=== PATIENT | male | born 1935 | race Caucasian/White ===

== ENCOUNTER → 2019-05-10 08:22 | Outpatient (CLI) | payer OTHER, SELFPAY ==
--- NOTE | 2019-05-10 | DI.ECHO.S_ITS ---
[facility] +---------+ : : [address] : [place] : : : : [id number] : : : : Phone: [phone]---------+ Echocardiogram Report + + :Name: MICHAEL HERRMANN Study Date: 05/10/2019 Height: 70 in : :[facility] Weight: 280 lb : : Gender: Male BSA: 2.4 m2 : :: 1935 Age: 84 yrs BP: 148/86 mmHg: :Reason For Study: ISCHEMIC HEART DISEASE : : Performed By: Rhea Sheldon : :Referring: LIZZETTE LINDO : + + Interpretation Summary 1) Normal left ventricular size with low normal systolic function (EF 50-55%). 2) There is a mild dyssynchronous contraction pattern due to the paced rhythm. The inferoapex appears akinetic but this can also be due to paced rhythm. 3) The right ventricle grossly appears normal in size with probable normal systolic function. 4) No significant valvular abnormalities. 5) No prior Echo available for comparison. Procedure: A two-dimensional transthoracic echocardiogram with color flow and Doppler was performed. There is no prior echocardiogram noted for this patient. A contrast injection of Definity was performed to improve assessment of LV function. The study quality was technically difficult. The subcostal views were difficult to obtain and are suboptimal in quality. The patient has a paced rhythm. Left Ventricle: The left ventricle is normal in size. Left ventricular wall thickness is mildly increased. The ejection fraction is estimated to be 50- 55%. There is a mild dyssynchronous contraction pattern due to the paced rhythm. The inferoapex appears akinetic but this can also be due to paced rhythm. Diastolic function could not be accurately assessed due to paced rhythm. Right Ventricle: The right ventricle is not well visualized. The right ventricle grossly appears normal in size with probable normal systolic function. Atria: The left atrial size is normal. Right atrium not well visualized. There is no Doppler evidence for an interatrial shunt. Mitral Valve: The mitral valve leaflets appear mildly thickened, but open well. There is trace mitral regurgitation. Aortic Valve: The aortic valve is trileaflet. The aortic valve opens well. There is no aortic valve stenosis. No aortic regurgitation is present. Tricuspid Valve: The tricuspid valve is not well visualized, but is grossly normal. There is a trace or physiologic amount of tricuspid regurgitation. Pulmonary artery pressures cannot be estimated because of the lack of a measurable TR jet velocity. Pulmonic Valve: The pulmonic valve is not well seen, but is grossly normal. There is a trace or physiologic amount of pulmonic regurgitation. Great Vessels: The aortic root is normal size. The ascending aorta is at the upper limits of normal in size. The inferior vena cava was not well visualized. Pericardium/ Pleura Physiologic pericardial effusion. MMode/2D Measurements & Calculations LVIDd: 5.6 cm LVOT diam: 2.3 cm LVIDs: 4.2 cm Ao root diam: 3.7 cm FS: 25.5 % asc Aorta Diam: 3.6 cm IVSd: 1.0 cm LVPWd: 1.3 cm LV aguiar. diameter/BSA (cm/m^2): 2.3 LV sys. diameter/BSA (cm/m^2): 1.7 LA A2 area: 23.0 cm2 TAPSE: 2.2 cm LA A4 area: 23.8 cm2 LA length (vol): 6.1 cm LA vol: 75.7 ml LA vol index: 31.4 ml/m2 Doppler Measurements & Calculations Ao V2 max: 153.4 cm/sec LVOT Max Raymundo: 104.9 cm/sec Ao V2 mean: 100.9 cm/sec LV V1 max P.4 mmHg Ao max P.4 mmHg LV V1 VTI: 22.9 cm Ao mean P.8 mmHg GORGE(I,D): 3.1 cm2 Ao V2 VTI: 31.8 cm GORGE(V,D): 3.0 cm2 sev ratio: 0.72 GORGE indexed to BSA (cm^2/m^2): 1.3 MV E max raymundo: 81.2 cm/sec PA V2 max: 76.5 cm/sec MV A max raymundo: 106.8 cm/sec PA V2 mean: 48.9 cm/sec MV E/A: 0.76 PA mean P.1 mmHg Med Peak E' Raymundo: 4.5 cm/sec PA pr(Accel): 44.7 mmHg E/E' med: 18.1 PA Accel Time: 0.08 sec Lat Peak E' Raymundo: 6.7 cm/sec E/E' lat: 12.2 E/e' average: 15.1 SV(LVOT): 99.0 ml Reading Physician:02:08 PM
[2019-05-10 08:57] LABS: Appearance Urine UA CLEAR; Bilirubin Urine UA NEGATIVE (NEGATIVE); Color Urine UA YELLOW; Glucose Urine UA NEGATIVE (Negative); Ketones Urine UA NEGATIVE (NEGATIVE); Leukocyte Esterase Urine UA NEGATIVE (NEGATIVE); Nitrite Urine UA NEGATIVE (Negative); Occult Blood Urine UA TRACE-INTACT (Negative); Protein Urine UA 2+ (Negative); Urobilinogen Urine UA 0.2 E.U./dL (0.2); pH Urine UA 6.5 (4.5-8.0)
[2019-05-10 09:12] LABS: Alanine Aminotransferase 21 IU/L (<50); Albumin 4.5 g/dL (3.5-5.0); Albumin Globulin Ratio 1.4 (1.0-2.8); Alkaline Phosphatase 69 U/L (38-126); Aspartate Aminotransferase 26 IU/L (17-59); BUN Creatinine Ratio 22.2 (6-22); Bilirubin Total 0.7 mg/dL (0.2-1.3); Blood Urea Nitrogen 20 mg/dL (9-20); Calcium 9.7 mg/dL (8.4-10.2); Carbon Dioxide 30 mmol/L (22-32); Chloride 102 mmol/L (98-107); Estimated Glomerular Filt Rate > 60.0 mL/min (>60); Globulin 3.2 g/dL (1.7-4.1); Glucose 146 mg/dL (80-110); HEMOLYSIS < 15 (0-50); Potassium 4.6 mmol/L (3.4-5.1); Sodium 141 mmol/L (137-145); Total Protein 7.7 g/dL (6.3-8.2)
[2019-05-10 10:07] LABS: Creatinine Urine Random 117.1 mg/dL
[2019-05-10 10:12] LABS: Microalbumin Urine Random 15.7 mg/dL (0-1.6)
[2019-05-10 11:21] LABS: Bacteria Urine Few (2-10); RBC Urine 1-5/HPF (0-5/HPF); Squamous Epithelial Cell Urine 0-1 /HPF (0-5/HPF); WBC Urine 0-1/HPF (0-5/HPF)
[2019-05-10 11:22] LABS: Culture Indicated Urine Cult Not Indicated; Granular Casts Urine 0-1/LPF
== END ==
PROVIDERS: PCP Family Medicine; Referring Provider Orthopaedic Surgery; Visit Provider Orthopaedic Surgery
DX: I25.9 Chronic ischemic heart disease, unspecified (principal); I44.30 Unspecified atrioventricular block; I48.91 Unspecified atrial fibrillation; I31.3 Pericardial effusion (noninflammatory); E11.9 Type 2 diabetes mellitus without complications
CPT/HCPCS: 36415; 80053; 81001; 82043; 82570; 93005; 93306; Q9957

== ENCOUNTER → 2019-08-30 09:05 | Outpatient (ROUT) | payer MEDICARE, BC, SELFPAY ==
[2019-08-30 09:45] LABS: INR 2.2 (0.9-1.3); Prothrombin Time 25.8 SECONDS (10.1-12.7)
== END ==
PROVIDERS: PCP Family Medicine; Visit Provider Family Medicine
DX: Z79.01 Long term (current) use of anticoagulants (principal); I48.0 Paroxysmal atrial fibrillation
CPT/HCPCS: 85610

== ENCOUNTER → 2019-09-13 14:13 | Outpatient (ROUT) | payer MEDICARE, BC, SELFPAY ==
[2019-09-13 14:28] LABS: INR 2.5 (0.9-1.3); Prothrombin Time 29.2 SECONDS (10.1-12.7)
== END ==
PROVIDERS: PCP Family Medicine; Visit Provider Family Medicine
DX: Z79.01 Long term (current) use of anticoagulants (principal); I48.0 Paroxysmal atrial fibrillation
CPT/HCPCS: 85610

== ENCOUNTER → 2019-10-12 10:02 | Outpatient (CLI) | payer MEDICARE, BC, SELFPAY ==
[2019-10-12 12:22] LABS: BUN Creatinine Ratio 17.7 (6-22); Blood Urea Nitrogen 17 mg/dL (9-20); Calcium 9.6 mg/dL (8.4-10.2); Carbon Dioxide 27 mmol/L (22-32); Chloride 104 mmol/L (98-107); Estimated Glomerular Filt Rate > 60.0 mL/min (>60); Glucose 109 mg/dL (80-110); HEMOLYSIS < 15 (0-50); Potassium 4.3 mmol/L (3.4-5.1); Sodium 138 mmol/L (137-145)
== END ==
PROVIDERS: PCP Family Medicine; Referring Provider Internal Medicine Cardiovascular Disease; Visit Provider Internal Medicine Cardiovascular Disease
DX: I25.10 Atherosclerotic heart disease of native coronary artery without angina pectoris (principal); I49.5 Sick sinus syndrome
CPT/HCPCS: 36415; 80048

== ENCOUNTER → 2020-02-24 10:11 | Outpatient (CLI) | payer MEDICARE, BC, SELFPAY ==
--- NOTE | 2020-02-24 | DI.CT.S_ITS ---
PROCEDURE: CT ABDOMEN PELVIS W CON INDICATIONS: Generalized abdominal pain TECHNIQUE: After the administration of oral and intravenous contrast, 5 mm thick sections acquired from the diaphragms to the symphysis. 5 mm thick coronal and sagittal reformats were performed. For radiation dose reduction, the following was used: automated exposure control, adjustment of mA and/or kV according to patient size. COMPARISON: Outside Film, CT, CT ABDOMEN PELVIS WITH/WITHOUT CONTRAST, 09/16/2013, 8:39. FINDINGS: Image quality: Excellent. ABDOMEN: Lung bases: Lung bases are clear. Heart size is normal. Solid organs: Liver is normal in size and enhancement. There is a small right posterior segment hepatic cyst as was previously the case in 2014. Gallbladder has been previously resected . Biliary system is non-dilated. Pancreas enhances normally. Spleen is normal in size and enhancement. No adrenal nodules. Kidneys are normal in size and enhancement, without hydronephrosis. Peritoneum and bowel: Stomach, small bowel, and colon loops are normal in caliber and wall thickness. No free fluid or air. Nodes and vessels: No retroperitoneal or mesenteric adenopathy. Aorta and inferior vena cava are normal in caliber. Miscellaneous: No ventral hernias. PELVIS: Genitourinary: Bladder wall thickness is normal. The bladder now contains approximately 6 small mobile urinary tract stones layering dependently within the bladder lumen. These were previously absent. Miscellaneous: No inguinal hernias or adenopathy. Normal appendix found. Bones: No suspicious bony lesions. No vertebral body compression fractures. IMPRESSION: Source of generalized abdominal pain is not seen. Normal appendix found. No sign of diverticulitis. Incidental note is made of approximately 6 small mobile bladder calculi when with reference to the [address] no bladder or collecting system calculus was found. These would present some degree of risk for recurrent urinary tract infections. Dictated by: Alonso Hirsch M.D. on 02/24/2020 at 14:23 Approved by: Alonso Hirsch M.D. on 02/24/2020 at 14:30
== END ==
PROVIDERS: PCP Family Medicine; Referring Provider Family Medicine; Visit Provider Family Medicine
DX: R10.84 Generalized abdominal pain (principal); N21.0 Calculus in bladder
CPT/HCPCS: 74177; Q9967

== ENCOUNTER 2023-06-01 13:10 | Emergency (ER) | payer MEDICARE, BC, SELFPAY ==
[2020-09-20 14:38] VITALS: BMI 34.8
[2023-06-01] VITALS (14 sets, daily range): BP systolic 127–145; BP diastolic 60–73; PULSE 84–96; RESP 22–34; TEMP 36.6–37; O2SAT 91–97; BMI 33.0
--- NOTE | 2023-06-01 13:30 | DI.RAD.S_ITS ---
PROCEDURE: XR CHEST 1V INDICATIONS: Shortness of breath TECHNIQUE: One view of the chest was acquired. COMPARISON: [facility], CR, XR CHEST 2V, 10/15/2022, 15:10. FINDINGS: Surgical changes and devices: Pacemaker. Lungs and pleura: Mild left effusion. Minimal appearance of increased vascularity. Mediastinum: Mediastinal contours appear normal. Heart size is enlarged. Bones and chest wall: No suspicious bony lesions. Overlying soft tissues appear unremarkable. IMPRESSION: Minimal increased vascularity with cardiomegaly and mild left effusions suggestive of edema. Dictated by: Nancy Mariscal M.D. on 06/01/2023 at 14:45 Approved by: Nancy Mariscal M.D. on 06/01/2023 at 14:45
[2023-06-01 14:35] LABS: Add Manual Diff / Slide Review NO; Basophils Absolute Auto 0 /uL (0-100); Basophils Percent Auto 0.4 % (0-2); Eosinophils Absolute Auto 300 /uL (0-450); Eosinophils Percent Auto 3.6 % (2-4); Hematocrit 24.3 % (41-53); Hemoglobin 8.2 g/dL (13.5-17.5); Lymphocytes Absolute Auto 1300 /uL (1100-4500); Lymphocytes Percent Auto 13.8 % (25-40); Mean Corpuscular HGB Conc 33.9 % (30-36); Mean Corpuscular Volume 97.3 fL (80-100); Monocytes Absolute Auto 900 /uL (0-900); Monocytes Percent Auto 9.6 % (3-14); Neutrophils Absolute Auto 7000 /uL (1500-7000); Neutrophils Percent Auto 72.6 % (50-75); Platelet Count 261 X10^3/uL (150-400); Red Blood Cell Count 2.49 X10^6/uL (4.5-5.9); Red Cell Distribution Width 21.6 % (11.6-14.8); White Blood Cell Count 9.7 X10^3/uL (4.5-11.0)
[2023-06-01 14:38] LABS: INR 1.7 (0.9-1.3); Prothrombin Time 19.7 SECONDS (9.4-12.5)
[2023-06-01 14:46] LABS: Alanine Aminotransferase 13 IU/L (<50); Albumin Globulin Ratio 1.3 (1.0-2.8); Alkaline Phosphatase 82 U/L (38-126); Aspartate Aminotransferase 20 IU/L (17-59); BUN Creatinine Ratio 11.8 (6-22); Bilirubin Total 0.8 mg/dL (0.2-1.3); Blood Urea Nitrogen 15 mg/dL (9-20); Calcium 9.7 mg/dL (8.4-10.2); Carbon Dioxide 29 mmol/L (22-32); Chloride 106 mmol/L (98-107); Estimated Glomerular Filt Rate 54 mL/min (>60); Globulin 3.1 g/dL (1.7-4.1); Glucose 127 mg/dL (80-110); HEMOLYSIS < 15 (0-50); Lactate (Lactic Acid) 1.7 mmol/L (0.7-2.1); Potassium 4.2 mmol/L (3.4-5.1); Sodium 142 mmol/L (137-145); Total Protein 7.1 g/dL (6.3-8.2)
[2023-06-01 14:55] LABS: Acanthocytes 1+; Anisocytosis 2+; NT-proBNP (BNP-Adult 18+) 6230 pg/mL (<450); Ovalocytes 2+; Rouleaux 1+; Schistocytes 1+; Troponin I < 0.012 ng/mL (0.01-0.034)
--- NOTE | 2023-06-01 15:05 | ED_ITS ---
HPI - General Adult General Chief complaint: Shortness of Breath/Dyspnea Stated complaint: Exertional SOB Time Seen by Provider: 06/01/23 15:01 Source: patient and EMS Mode of arrival: EMS History of Present Illness HPI narrative: 88-year-old male with history of pacemaker, atrial fibrillation, ileus, L3 compression fracture presents with exertional shortness of breath. History clarified from triage. Daughter at bedside is also a nurse. Patient had cardiac intervention with reported catheterization, bypass, stent in [place] in March. Daughter at bedside notes that patient had possible anaphylaxis to protamine sulfate during this, with bradycardia, and that he developed a left- sided hemothorax that required chest tube though this per their report was treated. He is consistent with his medications and has been overall doing well. There has been absolutely no chest pain recently. However, in the last several days, he is developed productive cough with intermittent shortness of breath and orthopnea. No pleuritic symptoms. No clear fevers or chills. No nausea or vomiting. No asymmetric leg swelling or leg pain. He denies history of blood clots. He is consistent with his Eliquis. He has not on diuretics. He also has a local [facility] and primary care physician. No back or flank or abdominal pain, focal numbness or weakness, lightheadedness or passing out, palpitations, bleeding, red or black in stool, or any other new concerns. Related Data Home Medications Medication Instructions Recorded Confirmed VITAMIN B COMPLEX ([id number]) 1 cap PO DAILY ##0 04/04/11 09/17/22 metformin 500 mg tablet,extended 500 mg PO BID ##0 04/04/11 09/17/22 release 24 hr (Glucophage XR) omeprazole 40 mg capsule,delayed 40 mg PO QDAY ##0 04/04/11 09/17/22 release finasteride 5 mg tablet 5 mg PO DAILY 01/14/21 09/17/22 amlodipine 5 mg tablet 5 mg PO DAILY 02/27/22 09/17/22 azelastine 137 mcg (0.1 %) nasal 1 spray intranasal DAILY 02/27/22 09/17/22 spray aerosol carvedilol 25 mg tablet 25 mg PO DAILY 02/27/22 09/17/22 isosorbide mononitrate 30 mg 30 mg PO DAILY 02/27/22 09/17/22 tablet,extended release 24 hr calcium citrate 250 mg PO DAILY 09/17/22 09/17/22 saffron extract 176.5 mg tablet 176.5 mg PO DAILY 09/17/22 09/17/22 Previous Rx's Medication Instructions Recorded acetaminophen 325 mg tablet 650 mg (2 x 325 mg) PO Q6HR #1,000 09/29/20 tabs apixaban 5 mg tablet (Eliquis) 5 mg PO BID #60 tabs 09/29/20 atorvastatin 40 mg tablet 40 mg PO BEDTIME #40 tabs 09/29/20 losartan 100 mg tablet 100 mg PO DAILY #10 tabs 09/29/20 cyclobenzaprine 10 mg tablet 10 mg PO TID pain #90 tabs 02/17/22 tramadol 50 mg tablet 50 mg PO BID PRN pain #42 tabs 01/27/23 doxycycline hyclate 100 mg capsule 100 mg PO BID 7 days #14 caps 06/01/23 furosemide 40 mg tablet (Lasix) 40 mg PO DAILY #7 tabs 06/01/23 Allergies Allergy/AdvReac Type Severity Reaction Status Date / Time shellfish derived Allergy Intermediate Hives Verified 09/17/22 08:42 lisinopril Allergy Unknown Verified 09/17/22 08:42 moricizine [From Ethmozine] Allergy Unknown Verified 09/17/22 08:42 Penicillins AdvReac Unknown Anxiety Verified 09/17/22 08:42 Review of Systems Review of Systems Narrative: Constitutional: no fever, no chills Eyes: no visual disturbance, no discharge Ears, Nose, Mouth, Throat: no rhinorrhea, no sore throat Cardiovascular: no chest pain, no palpitations Respiratory: + cough, shortness of breath Gastrointestinal: no abdominal pain, no vomiting, no diarrhea Genitourinary: no dysuria, no hematuria Musculoskeletal: no back pain, no neck stiffness Skin: no rash, no wound Neurological: no focal weakness, no focal numbness Patient History Medical History Atrial fibrillation Bladder stones Compression fracture of L3 lumbar vertebra Diabetes Enlarged prostate with urinary retention Facet arthropathy, lumbar Herniated nucleus pulposus, lumbar Hypertension Impingement syndrome of left shoulder Lumbar radiculopathy Lumbar stress fracture Morbid obesity Pacemaker Family History Mother Cancer Social History household members: spouse Smoking Status: Never smoker Smoking Status: Never smoker alcohol intake frequency: holidays/special occasions only Substance Use Type: does not use Exam Narrative Exam Narrative: Const: no acute distress, non toxic appearing; calm, conversant, pleasant; occasional cough Eyes: PERRLA, EOMI ENT: mucous membranes moist Neck: supple, non-tender Resp: no respiratory distress, good aeration but with bilateral lower lung crackles, worse on left side Card: regular rate and rhythm, no murmurs Abd: non tender diffusely, no rigidity or rebound or guarding Back: no T or L spine tenderness, no CVA tenderness bilaterally Extrem: no deformities, no swelling bilateral lower extremities, 2+ distal pulses all extremities Neuro: ANOx4, legal adviser grossly intact, grossly intact sensation and strength all extremities Skin: no rash, warm and dry Initial Vital Signs Initial Vital Signs: Vital Signs Pulse Rate 92 H 06/01/23 13:15 Respiratory Rate 26 H 06/01/23 13:15 Pulse Oximetry 91 06/01/23 13:15 Course Course Course Narrative: This presentation is most suggestive of pulmonary edema, CHF, viral syndrome, pneumonia, though I have considered a broad differential including but not limited to pulmonary embolism, ACS, myocarditis, pneumothorax, COPD exacerbation, symptomatic anemia, metabolic acidosis, among others. I am obtaining broad workup with EKG, CBC, CMP, troponin, D-dimer, BNP, chest x-ray, viral swab, urine and will closely reassess. Per chart review, he had pacemaker placed in April 2022. Patient notes he is receiving iron for anemia. EKG shows paced rhythm without clear acute ischemia, with interval prolongation in the setting of paced rhythm. We are able to find prior EKG from August 2020 that has overall similar morphology. CBC with no leukocytosis, with anemia down roughly 2.5 points from August 2022 (pt states he is receiving iron for this), no thrombocytopenia. Chemistry with creatinine increased from 1 year ago, though no more recent for comparison, with no BUN elevation, with no LFT elevation, no immediately concerning electrolyte derangements. INR elevated to 1.7. Lactate reassuring. BNP very elevated. Troponin reassuring. Urine with some blood though in setting of contamination, no clear infection particularly with no symptoms. Patient notified of this finding for follow up. Radiology review of CXR below, which I agree with on my independent review: FINDINGS: Surgical changes and devices: Pacemaker. Lungs and pleura: Mild left effusion. Minimal appearance of increased vascularity. Mediastinum: Mediastinal contours appear normal. Heart size is enlarged. Bones and chest wall: No suspicious bony lesions. Overlying soft tissues appear unremarkable. IMPRESSION: Minimal increased vascularity with cardiomegaly and mild left effusions suggestive of edema. Dictated by: Nancy Mariscal M.D. on 06/01/2023 at 14:45 -- I am giving Lasix 40 mg IV. D-dimer is elevated, and I am pursuing CTA PE study. Radiology review of CTA below, which I agree with on my independent review: FINDINGS: Image quality: Suboptimal evaluation of the subsegmental pulmonary arteries of the lower lobe secondary to contrast bolus timing. Pulmonary arteries: Pulmonary arteries are normal in size, and demonstrate no definite central intraluminal filling defects to suggest central pulmonary embolism. Lower Neck: No enlarged lymph nodes. Thyroid: No thyroid nodules which require sonographic follow up, per consensus guidelines. Axillae: No enlarged lymph nodes. Chest Wall: Unremarkable. Bones: Unremarkable. Lungs and Pleura: No pneumothorax. There is a small left pleural effusion. There is moderate bibasilar predominant reticulonodular and ground-glass pulmonary opacity. Heart: Heart size is enlarged. Calcification of the coronary vasculature. No pericardial effusion. Thoracic Vessels: No aortic aneurysm. Mediastinum and Akiko: No enlarged lymph nodes. Esophagus: No wall thickening. No hiatal hernia. Upper Abdomen: Visualized upper abdomen solid organs and bowel loops appear normal. IMPRESSION: 1. No definite central pulmonary embolus. Subsegmental lower lobe pulmonary emboli cannot be excluded. 2. Cardiomegaly. Coronary artery disease. 3. Bibasilar predominant edema versus pneumonia. Small left pleural effusion. Dictated by: Ana Cristina Crabtree M.D. on 06/01/2023 at 16:55 CT is somewhat suboptimal, however he is overall reassuring in the clinical context. Findings appear sufficient to explain patient's shortness of breath. This appears most consistent with edema with potential for pneumonia. This appears less consistent with hemothorax, and certainly is not consistent with a large hemothorax that would merit repeat chest tube currently. I did explain the suboptimal nature of the study to him and offer him repeat CT, discussing that it is possible a small pulmonary embolism could have been missed. However, fully understanding the risks of not pursuing this, he chose not to pursue this study. He is anticoagulated with no evidence of cardiac injury here, with no large PE on imaging, and I think this is reasonable. He is also improving here with Lasix, and I am adding antibiotics in case of concurrent pneumonia. He is urinating well here and understands importance of repeat labs within a few days, with family with excellent health care literacy understanding this as well. I recommended discussion of outpatient echo with them. Volume overload and the potential for pneumonia seem sufficient to explain his symptoms, particularly in the setting of no chest pain or pleuritic symptoms. Patient understands importance of close follow up and appears stable, not in respiratory distress, not requiring oxygen, well-perfused, afebrile. Copy of imaging given for follow up. Prescribing doxycycline, Lasix. Repeat exam and vital signs reassuring. Note measurement of respiratory rate by machine is not accurate; I reassessed the patient multiple times in his respiratory rate is in the mid teens. Questions answered. Plan reviewed. Patient discharged in stable condition. Orders Ordered: ED Orders 06/01/23 13:30 XR chest 1V Stat EKG-12 Lead Stat Measure peak expiratory flow ONCE RT Consult Eval and Treat NOW 06/01/23 13:40 Complete Blood Count AUTO DIFF Stat Comprehensive Metabolic Panel Stat D Dimer Stat Lactate (Lactic Acid) Stat NT-proBNP (BNP-Adult 18+) Stat Prothrombin Time INR Stat Troponin I Stat 06/01/23 15:30 Urinalysis and Microscopic Stat Urine Culture Stat 06/01/23 15:42 CT angio chest PE protocol Stat 06/01/23 17:37 Blood Culture Stat Discontinued Medications Doxycycline Hyclate (Doxycycline Hyclate 100 Mg Tablet) 100 mg PO NOW ONE Stop: 06/01/23 17:35 Last Admin: 06/01/23 17:59 Dose: 100 mg Documented By: FLORES Furosemide (Furosemide 40 Mg/4 Ml Vial) 40 mg IV NOW ONE Stop: 06/01/23 15:43 Last Admin: 06/01/23 15:56 Dose: 40 mg Documented By: FLORES Vital Signs Vital signs: Vital Signs - 8 hr 06/01/23 13:15 06/01/23 13:16 06/01/23 13:16 Temperature Pulse Rate 92 H 91 H Respiratory Rate 26 H 32 H Blood Pressure 145/64 H Pulse Oximetry 91 96 Oxygen Delivery Method 06/01/23 13:26 06/01/23 13:30 06/01/23 14:00 Temperature 97.9 F Pulse Rate 90 91 H Respiratory Rate 22 31 H Blood Pressure 145/64 H 141/67 H Pulse Oximetry 96 97 Oxygen Delivery Method Room Air Room Air 06/01/23 14:00 06/01/23 14:30 06/01/23 14:30 Temperature Pulse Rate 85 84 Respiratory Rate 22 26 H Blood Pressure 127/60 Pulse Oximetry 96 95 Oxygen Delivery Method 06/01/23 15:00 06/01/23 15:00 06/01/23 15:33 Temperature Pulse Rate 85 96 H Respiratory Rate 30 H 34 H Blood Pressure 132/68 Pulse Oximetry 94 96 Oxygen Delivery Method 06/01/23 15:33 06/01/23 16:12 06/01/23 16:30 Temperature 98.6 F Pulse Rate 92 H 86 Respiratory Rate 24 Blood Pressure 129/73 Pulse Oximetry 96 Oxygen Delivery Method 06/01/23 17:00 06/01/23 17:30 06/01/23 17:41 Temperature Pulse Rate 87 86 85 Respiratory Rate 30 H 24 24 Blood Pressure Pulse Oximetry 95 95 95 Oxygen Delivery Method 06/01/23 17:41 06/01/23 18:00 Temperature Pulse Rate 87 Respiratory Rate 24 Blood Pressure 136/65 Pulse Oximetry 97 Oxygen Delivery Method Medical Decision Making Lab Data 06/01/23 13:40 06/01/23 13:40 Labs: Lab Results 06/01/23 06/01/23 Range/Units 13:40 15:30 WBC 9.7 (4.5-11.0) X10^3/uL RBC 2.49 L (4.5-5.9) X10^6/uL Hgb 8.2 L (13.5-17.5) g/dL Hct 24.3 L (41-53) % MCV 97.3 (80-100) fL MCH 33.0 (26-34) PG MCHC 33.9 (30-36) % RDW 21.6 H (11.6-14.8) % Plt Count 261 (150-400) X10^3/uL Neut % (Auto) 72.6 (50-75) % Lymph % (Auto) 13.8 L (25-40) % [place] % (Auto) 9.6 (3-14) % Eos % (Auto) 3.6 (2-4) % Baso % (Auto) 0.4 (0-2) % Neut # (Auto) 7000 (3291-6850) /uL Lymph # (Auto) 1300 (2588-2423) /uL [place] # (Auto) 900 (0-900) /uL Eos # (Auto) 300 (0-450) /uL Baso # (Auto) 0 (0-100) /uL RBC Morphology See below Anisocytosis 2+ H Ovalocytes 2+ H Acanthocytes (Spur) 1+ Rouleaux 1+ H Schistocytes 1+ H PT 19.7 H (9.4-12.5) SECONDS INR 1.7 H (0.9-1.3) D-Dimer 1310 H (<500) ng/ml Sodium 142 (137-145) mmol/L Potassium 4.2 (3.4-5.1) mmol/L Chloride 106 (98-107) mmol/L Carbon Dioxide 29 (22-32) mmol/L BUN 15 (9-20) mg/dL Creatinine 1.27 H (0.66-1.25) mg/dL Estimated GFR 54 L (>60) mL/min BUN/Creatinine Ratio 11.8 (6-22) Glucose 127 H (80-110) mg/dL Lactate 1.7 (0.7-2.1) mmol/L Calcium 9.7 (8.4-10.2) mg/dL Total Bilirubin 0.8 (0.2-1.3) mg/dL AST 20 (17-59) IU/L ALT 13 (<50) IU/L Alkaline Phosphatase 82 (38-126) U/L Troponin I < 0.012 (0.01-0.034) ng/mL NT-Pro-B Natriuret Pep 6230 H (<450) pg/mL Total Protein 7.1 (6.3-8.2) g/dL Albumin 4.0 (3.5-5.0) g/dL Globulin 3.1 (1.7-4.1) g/dL Albumin/Globulin Ratio 1.3 (1.0-2.8) Urine Color Yellow Urine Appearance Clear Urine pH 6.0 (4.5-8.0) Ur Specific [place] 1.025 (1.000-1.035) Urine Protein 2+ H (Negative) Urine Glucose (UA) Negative (Negative) g/dL Urine Ketones Negative (NEGATIVE) Urine Occult Blood Trace-intact (Negative) Urine Nitrate Negative (Negative) Urine Bilirubin Negative (NEGATIVE) Urine Urobilinogen 4.0 H (0.2) E.U./dL Ur Leukocyte Esterase Negative (NEGATIVE) Urine RBC 5-10/hpf H (0-5/HPF) Urine WBC 0-1/hpf (0-5/HPF) Ur Squamous Epith Cells 10-30 /hpf H D (0-5/HPF) Urine Bacteria Occasional (0-1) (None) Ur Culture Indicated? Specimen cultured Vol Urine Centrifuged 10ml (spun) Discharge Plan Departure Patient Disposition: Home Clinical Impression: Dyspnea Instructions: DI for Shortness of Breath Activity Restrictions/Additional Instructions: It was a pleasure taking care of you today. It is important to fully read and understand the below. Please ask us if you have any questions. We think the most likely cause of your symptoms is extra fluid in your lungs, though pneumonia could be contributing. As discussed, the CT was not perfect for ruling out blood clots, but this does seem less likely at this time, and you prefer not to obtain repeat imaging. It is very important you are reassessed by a doctor within 2-3 days. I am prescribing both Lasix to help get fluid out of your lungs and antibiotics. I am sending blood cultures that your doctor should follow up on within a few days. If you feel worse, please immediately return. There is small blood and protein in your urine for follow up. You also are more anemic than you used to be 1 year ago and this also needs follow up. You told me you are receiving iron for this. No tests or assessments are perfect, and your condition could chemical cell changer time. If your symptoms change or worsen, it is very important you immediately seek medical care. If you have any new or worsening pain, lightheadedness or passing out, lack of improvement within 48 hours, shortness of breath, fever, vomiting, confusion, numbness, weakness, or anything else that concerns you, please immediately seek medical care. If you have been prescribed any medications: please read the drug package inserts on how to properly use the medication and any potential side effects. If you had labs (blood tests) or imaging (CT scan or x-rays) done during your visit: please follow up on the results of these with your primary care doctor, as discussed. In addition, please know the results we received today may be preliminary. Our usual practice is to follow up on tests within a few days of a patient's discharge from the Emergency Department and notify you of any changes. These may lead to changes to your treatment plan. However, the best way to obtain and interpret these test results is through your Primary Care Provider. If you need to update your contact information, please stop by the front office java developer and alert the Registration personnel before you leave the Emergency Department. Thank you for the opportunity to participate in your healthcare. We are always here and happy to see you in the future. --- PLEASE TAKE THE ATTACHED IMAGING TO YOUR DOCTORS: FINDINGS: Image quality: Suboptimal evaluation of the subsegmental pulmonary arteries of the lower lobe secondary to contrast bolus timing. Pulmonary arteries: Pulmonary arteries are normal in size, and demonstrate no definite central intraluminal filling defects to suggest central pulmonary embolism. Lower Neck: No enlarged lymph nodes. Thyroid: No thyroid nodules which require sonographic follow up, per consensus guidelines. Axillae: No enlarged lymph nodes. Chest Wall: Unremarkable. Bones: Unremarkable. Lungs and Pleura: No pneumothorax. There is a small left pleural effusion. There is moderate bibasilar predominant reticulonodular and ground-glass pulmonary opacity. Heart: Heart size is enlarged. Calcification of the coronary vasculature. No pericardial effusion. Thoracic Vessels: No aortic aneurysm. Mediastinum and Akiko: No enlarged lymph nodes. Esophagus: No wall thickening. No hiatal hernia. Upper Abdomen: Visualized upper abdomen solid organs and bowel loops appear normal. IMPRESSION: 1. No definite central pulmonary embolus. Subsegmental lower lobe pulmonary emboli cannot be excluded. 2. Cardiomegaly. Coronary artery disease. 3. Bibasilar predominant edema versus pneumonia. Small left pleural effusion. Dictated by: Ana Cristina Crabtree M.D. on 06/01/2023 at 16:55 Prescriptions: New furosemide [Lasix] 40 mg tablet 40 mg PO DAILY Qty: 7 0RF doxycycline hyclate 100 mg capsule 100 mg PO BID 7 Days Qty: 14 0RF No Action omeprazole 40 MG capsule,delayed release(DR/EC) 40 mg PO QDAY Qty: 0 metformin [Glucophage XR] 500 MG tablet extended release 24 hr 500 mg PO BID Qty: 0 VITAMIN B COMPLEX ([id number]) 1,000 mcg bottle 1 cap PO DAILY Qty: 0 cyclobenzaprine 10 mg tablet 10 mg PO TID Qty: 90 0RF Rx Instructions: can be sedating tramadol 50 mg tablet 50 mg PO BID PRN (Reason: pain) Qty: 42 1RF acetaminophen 325 mg Tablet 650 mg PO Q6HR Qty: 1000 0RF Eliquis 5 mg Tablet 5 mg PO BID Qty: 60 0RF atorvastatin 40 mg tablet 40 mg PO BEDTIME Qty: 40 0RF losartan 100 mg tablet 100 mg PO DAILY Qty: 10 0RF amlodipine 5 mg tablet 5 mg PO DAILY azelastine 137 mcg (0.1 %) aerosol,spray 1 spray intranasal DAILY carvedilol 25 mg tablet 25 mg PO DAILY isosorbide mononitrate 30 mg tablet extended release 24 hr 30 mg PO DAILY finasteride 5 mg tablet 5 mg PO DAILY calcium citrate 250 mg calcium tablet 250 mg PO DAILY saffron extract 176.5 mg tablet 176.5 mg PO DAILY Referrals: Freya Gutierrez MD [Primary Care Provider] - Stand Alone Forms: Patient Portal/API
[2023-06-01 15:35] LABS: D Dimer 1310 ng/ml (<500)
--- NOTE | 2023-06-01 15:42 | DI.CT.S_ITS ---
PROCEDURE: CT ANGIO CHEST PE PROTOCOL INDICATIONS: SOB, elevated d-dimer TECHNIQUE: After the administration of intravenous contrast, 2 mm thick sections acquired from the pulmonary apices to the posterior costophrenic angles. 3-dimensional maximum intensity projection (MIP) coronal and sagittal reformats were then acquired through the thorax. For radiation dose reduction, the following was used: automated exposure control, adjustment of mA and/or kV according to patient size. COMPARISON: None. FINDINGS: Image quality: Suboptimal evaluation of the subsegmental pulmonary arteries of the lower lobe secondary to contrast bolus timing. Pulmonary arteries: Pulmonary arteries are normal in size, and demonstrate no definite central intraluminal filling defects to suggest central pulmonary embolism. Lower Neck: No enlarged lymph nodes. Thyroid: No thyroid nodules which require sonographic follow up, per consensus guidelines. Axillae: No enlarged lymph nodes. Chest Wall: Unremarkable. Bones: Unremarkable. Lungs and Pleura: No pneumothorax. There is a small left pleural effusion. There is moderate bibasilar predominant reticulonodular and ground-glass pulmonary opacity. Heart: Heart size is enlarged. Calcification of the coronary vasculature. No pericardial effusion. Thoracic Vessels: No aortic aneurysm. Mediastinum and Akiko: No enlarged lymph nodes. Esophagus: No wall thickening. No hiatal hernia. Upper Abdomen: Visualized upper abdomen solid organs and bowel loops appear normal. IMPRESSION: 1. No definite central pulmonary embolus. Subsegmental lower lobe pulmonary emboli cannot be excluded. 2. Cardiomegaly. Coronary artery disease. 3. Bibasilar predominant edema versus pneumonia. Small left pleural effusion. Dictated by: Ana Cristina Crabtree M.D. on 06/01/2023 at 16:55 Approved by: Ana Cristina Crabtree M.D. on 06/01/2023 at 17:00
[2023-06-01 15:49] LABS: Appearance Urine UA CLEAR; Bilirubin Urine UA NEGATIVE (NEGATIVE); Color Urine UA YELLOW; Glucose Urine UA NEGATIVE (Negative); Ketones Urine UA NEGATIVE (NEGATIVE); Leukocyte Esterase Urine UA NEGATIVE (NEGATIVE); Nitrite Urine UA NEGATIVE (Negative); Occult Blood Urine UA TRACE-INTACT (Negative); Protein Urine UA 2+ (Negative); Specific Gravity Urine UA 1.025 (1.000-1.035)
[2023-06-01] MEDS: FUROSEMIDE 40 MG/4 ML VIAL IV (15:56)
[2023-06-01 15:57] LABS: Bacteria Urine Occasional (0-1); Culture Indicated Urine Specimen Cultured; RBC Urine 5-10/HPF (0-5/HPF); Squamous Epithelial Cell Urine 10-30 /HPF (0-5/HPF); Urine Volume 10mL (spun); WBC Urine 0-1/HPF (0-5/HPF)
[2023-06-01] MEDS: DOXYCYCLINE HYCLATE 100 MG TABLET PO (17:59)
== END 2023-06-01 18:24 | disposition home or self-care (01) ==
PROVIDERS: Emergency Provider Emergency Medicine; PCP Family Medicine
DX: R06.02 Shortness of breath (principal); R06.00 Dyspnea, unspecified
CPT/HCPCS: 36415; 71045; 71275; 80053; 81001; 83605; 83880; 84484; 85025; 85379; 85610; 87040; 87077; 87086; 87186; 93005; 93010; 96374; 99284; J1940; Q9967

== ENCOUNTER 2023-06-14 14:46 | Inpatient (IN) | payer MEDICARE, BC, SELFPAY ==
[2020-09-20 14:38] VITALS: BMI 34.8
[2023-06-14] VITALS (24 sets, daily range): BP systolic 96–145; BP diastolic 37–87; PULSE 65–93; RESP 16–35; TEMP 36.3–37.1; O2SAT 96–100; BMI 32.7
--- NOTE | 2023-06-14 14:52 | DI.RAD.S_ITS ---
PROCEDURE: XR CHEST 1V INDICATIONS: DYSPNEA ON EXERTION TECHNIQUE: One view of the chest was acquired. COMPARISON: [facility], CR, XR CHEST 1V, 06/01/2023, 13:43. FINDINGS: Surgical changes and devices: Pacemaker appear Lungs and pleura: Lungs are clear. No pleural effusions or pneumothorax. Mediastinum: Mediastinal contours appear normal. Heart size is enlarged. Bones and chest wall: No suspicious bony lesions. Overlying soft tissues appear unremarkable. IMPRESSION: No acute cardiopulmonary abnormality is seen. Dictated by: Nancy Mariscal M.D. on 06/14/2023 at 15:20 Approved by: Nancy Mariscal M.D. on 06/14/2023 at 15:20
--- NOTE | 2023-06-14 14:53 | ED_ITS ---
HPI - SOB/Dyspnea General Chief Complaint: Shortness of Breath/Dyspnea Stated Complaint: SOB on exertion Time Seen by Provider: 06/14/23 14:49 History of Present Illness HPI Narrative: 88-year-old male with history of atrial fibrillation on Eliquis, coronary artery disease status post CABG, stent in [place] in March presents by EMS from home for shortness of breath on exertion. Patient is seen here on 06/01/2023 for same complaint. At that time workup was significant for bibasilar edema, small left pleural effusion, hemoglobin 8.2. Patient was given Lasix and discharged home. Patient states he has been fairly asymptomatic until today. He went to get up to use the restroom and felt very short of breath, causing him to have to take a break and use the urinal instead of going all the way to the restroom. He rested for a little while, but when he went to get up again he felt short of breath again and decided to call 911. Patient denies bleeding, melena, hematochezia. He states that he had to have several blood transfusions during his cardiac surgical stay, but otherwise he has not had a blood transfusion. Related Data Home Medications Medication Instructions Recorded Confirmed VITAMIN B COMPLEX ([id number]) 1 cap PO DAILY ##0 04/04/11 06/12/23 omeprazole 40 mg capsule,delayed 40 mg PO QDAY ##0 04/04/11 06/12/23 release finasteride 5 mg tablet 5 mg PO DAILY 01/14/21 06/12/23 azelastine 137 mcg (0.1 %) nasal 1 spray intranasal DAILY 02/27/22 06/12/23 spray aerosol carvedilol 25 mg tablet 25 mg PO DAILY 02/27/22 06/12/23 calcium citrate 250 mg PO DAILY 09/17/22 06/12/23 saffron extract 176.5 mg tablet 176.5 mg PO DAILY 09/17/22 06/12/23 ferrous sulfate 325 mg (65 mg 325 mg PO TID 06/12/23 06/12/23 iron) tablet tamsulosin 0.4 mg capsule 0.4 mg PO BEDTIME 06/12/23 06/12/23 vitamins A,C,Z-wsch-opnedb 4,296 1 cap PO BID 06/12/23 06/12/23 mcg-226 mg-90 mg capsule (ICaps AREDS) Previous Rx's Medication Instructions Recorded acetaminophen 325 mg tablet 650 mg (2 x 325 mg) PO Q6HR #1,000 09/29/20 tabs apixaban 5 mg tablet (Eliquis) 5 mg PO BID #60 tabs 09/29/20 atorvastatin 40 mg tablet 40 mg PO BEDTIME #40 tabs 09/29/20 losartan 100 mg tablet 100 mg PO DAILY #10 tabs 09/29/20 cyclobenzaprine 10 mg tablet 10 mg PO TID pain #90 tabs 02/17/22 tramadol 50 mg tablet 50 mg PO BID PRN pain #42 tabs 01/27/23 furosemide 40 mg tablet (Lasix) 40 mg PO DAILY #7 tabs 06/01/23 Allergies Allergy/AdvReac Type Severity Reaction Status Date / Time shellfish derived Allergy Intermediate Hives Verified 06/12/23 11:27 lisinopril Allergy Unknown Verified 06/12/23 11:27 moricizine [From Ethmozine] Allergy Unknown Verified 06/12/23 11:27 Penicillins AdvReac Unknown Anxiety Verified 06/12/23 11:27 Review of Systems Review of Systems Narrative: Negative except as noted above Patient History Medical History Facet arthropathy, lumbar Impingement syndrome of left shoulder Herniated nucleus pulposus, lumbar Compression fracture of L3 lumbar vertebra Lumbar stress fracture Lumbar radiculopathy Morbid obesity Enlarged prostate with urinary retention Hypertension Atrial fibrillation Pacemaker Diabetes Bladder stones Family History Mother Cancer Social History household members: spouse Smoking Status: Former smoker Smoking Status: Former smoker alcohol intake frequency: holidays/special occasions only Substance Use Type: does not use Exam Initial Vital Signs Initial Vital Signs: Vital Signs Pulse Rate 87 06/14/23 14:51 Pulse Oximetry 100 06/14/23 14:51 Oxygen Delivery Method Room Air 06/14/23 14:51 Const: Awake, alert, no acute distress, nontoxic appearing Cardiac: regular rate, regular rhythm RESP: unlabored, clear bilaterally, no wheezing GI: Soft, nontender, nondistended, no rebound, no guarding Rectal: Quality Control Coordinator present, no hemorrhoids, no gross blood, soft brown stool in rectal vault MSK: Atraumatic, full range of motion, pulses equal Skin: Warm, Dry, intact, no rashes Neuro: AO x3, CN II-XII grossly intact, moves all extremities Course Orders Ordered: ED Orders 06/14/23 14:52 Chest [XR chest 1V] Stat 06/14/23 15:00 EKG-12 Lead Stat 06/14/23 15:15 BNP [NT-proBNP (BNP-Adult 18+)] Stat CBC Auto Diff [Complete Blood Count AUTO DIFF] Stat CMP [Comprehensive Metabolic Panel] Stat PT [Prothrombin Time INR] Stat 06/14/23 15:39 Type and Screen Stat transfuse [Packed Cells] Stat 06/14/23 16:35 Trop I [Troponin I] Stat Acetaminophen (Acetaminophen 325 Mg Tablet) 650 mg PO Q6H PRN PRN Reason: Fever/Mild Pain (1-3) Hydrocodone Bitart/Acetaminophen (Hydrocodone/Acet 5/325 Tablet) 1 tab PO Q4H PRN PRN Reason: Pain, Moderate (4-6) Calcium Carbonate (Calcium Carbonate 500 Mg Tab) 1,000 mg PO Q4HR PRN PRN Reason: Dyspepsia Docusate Sodium (Docusate 100 Mg Capsule) 100 mg PO BID [facility] Naloxone HCl (Naloxone 0.4 Mg/Ml Vial) 0.2 mg IV Q2MIN PRN PRN Reason: Opiate Reversal Ondansetron HCl (Ondansetron 4 Mg/2 Ml Inj) 4 mg IV Q8HR PRN PRN Reason: Nausea And Vomiting Pantoprazole Sodium (Pantoprazole Dr 20 Mg Tablet) 40 mg PO 0600 [facility] Vital Signs Vital signs: Vital Signs - 8 hr 06/14/23 14:51 06/14/23 14:52 06/14/23 14:52 Temperature Pulse Rate 87 89 Respiratory Rate Blood Pressure 130/64 Pulse Oximetry 100 100 Oxygen Delivery Method Room Air 06/14/23 15:00 06/14/23 15:00 06/14/23 15:00 Temperature 98.6 F Pulse Rate 83 85 Respiratory Rate 22 30 H Blood Pressure 142/78 H 142/78 H Pulse Oximetry 98 99 Oxygen Delivery Method Room Air 06/14/23 15:30 06/14/23 15:31 06/14/23 15:31 Temperature Pulse Rate 83 83 Respiratory Rate 26 H 22 Blood Pressure 145/63 H Pulse Oximetry 96 98 Oxygen Delivery Method 06/14/23 16:00 06/14/23 16:01 06/14/23 16:01 Temperature Pulse Rate 81 81 Respiratory Rate 22 26 H Blood Pressure 128/87 Pulse Oximetry 98 96 Oxygen Delivery Method Room Air MDM - SOB/Dyspnea Lab Data 06/14/23 15:15 06/14/23 15:15 Labs: Lab Results 06/14/23 06/14/23 Range/Units 15:15 15:39 WBC 10.7 (4.5-11.0) X10^3/uL RBC 1.75 L (4.5-5.9) X10^6/uL Hgb 5.7 L* (13.5-17.5) g/dL Hct 17.1 L* (41-53) % MCV 97.6 (80-100) fL MCH 32.3 (26-34) PG MCHC 33.1 (30-36) % RDW 22.8 H (11.6-14.8) % Plt Count 258 (150-400) X10^3/uL Neut % (Auto) Not Reportable Lymph % (Auto) Not Reportable [place] % (Auto) Not Reportable Eos % (Auto) Not Reportable Baso % (Auto) Not Reportable Lymph # (Auto) Not Reportable [place] # (Auto) Not Reportable Baso # (Auto) Not Reportable Total Counted 100 Seg Neutrophils % 68.0 (38-70) % Band Neutrophils % 1.0 L (3-7) % Lymphocytes % (Manual) 6.0 L (25-45) % Atypical Lymphs % 6.0 H ( - 0) % Monocytes % (Manual) 14.0 H (2-11) % Eosinophils % (Manual) 4.0 (2-4) % Basophils % (Manual) 1.0 (0-1) % Neutrophils # (Manual) 7383 H (2850-3152) /uL RBC Morphology See below Polychromasia 1+ H Hypochromasia 1+ H Anisocytosis 1+ H Ovalocytes 2+ H Rouleaux 1+ H PT 21.3 H (9.4-12.5) SECONDS INR 1.8 H (0.9-1.3) Sodium 139 (137-145) mmol/L Potassium 4.1 (3.4-5.1) mmol/L Chloride 104 (98-107) mmol/L Carbon Dioxide 30 (22-32) mmol/L BUN 34 H (9-20) mg/dL Creatinine 1.27 H (0.66-1.25) mg/dL Estimated GFR 54 L (>60) mL/min BUN/Creatinine Ratio 26.8 H (6-22) Glucose 114 H (80-110) mg/dL Calcium 9.2 (8.4-10.2) mg/dL Total Bilirubin 0.4 (0.2-1.3) mg/dL AST 24 (17-59) IU/L ALT 15 (<50) IU/L Alkaline Phosphatase 73 (38-126) U/L NT-Pro-B Natriuret Pep 3550 H (<450) pg/mL Total Protein 6.7 (6.3-8.2) g/dL Albumin 3.7 (3.5-5.0) g/dL Globulin 3.0 (1.7-4.1) g/dL Albumin/Globulin Ratio 1.2 (1.0-2.8) Blood Type O Negative Antibody Screen Negative Crossmatch See Detail MDM Narrative Medical decision making narrative: Progressive dyspnea on exertion. On exam patient is saturating well on room air, conversational without any difficulty. Lungs are clear to auscultation bilaterally. Laboratory work significant for hemoglobin 5.7, hematocrit 17.1. When patient was here 13 days ago his hemoglobin was 8.2 and his hematocrit 24.3. Patient denies melena, hematochezia, other complaints. Rectal exam shows soft brown stool, no obvious blood. Type and screen sent to lab, 2 units of packed red blood cells ordered for transfusion. Other laboratory work is significant for creatinine 1.27 and GFR 54, unchanged from recent visit on 06/01/2023. Discussed all lab and imaging findings with patient and his at bedside, recommended admission for transfusion and further investigation of his new anemia. Critical Care Time Critical Care Time Critical Care Time: Yes Total Critical Care Time: 23 Attestation: Anemia requiring transfusion, dyspnea Discharge Plan Departure Patient Disposition: Admitted As Inpatient Clinical Impression: Anemia requiring transfusions, Acute dyspnea Admit Date/Time: 06/14/23 16:18 Admit Provider: Freya Gutierrez
[2023-06-14 15:27] LABS: Mean Corpuscular HGB Conc 33.1 % (30-36); Mean Corpuscular Hemoglobin 32.3 PG (26-34); Mean Corpuscular Volume 97.6 fL (80-100); Platelet Count 258 X10^3/uL (150-400); Red Blood Cell Count 1.75 X10^6/uL (4.5-5.9); Red Cell Distribution Width 22.8 % (11.6-14.8); White Blood Cell Count 10.7 X10^3/uL (4.5-11.0)
[2023-06-14 15:29] LABS: Add Manual Diff / Slide Review YES; Hematocrit 17.1 % (41-53); Hemoglobin 5.7 g/dL (13.5-17.5); INR 1.8 (0.9-1.3); Prothrombin Time 21.3 SECONDS (9.4-12.5)
[2023-06-14 15:35] LABS: Alanine Aminotransferase 15 IU/L (<50); Albumin 3.7 g/dL (3.5-5.0); Albumin Globulin Ratio 1.2 (1.0-2.8); Alkaline Phosphatase 73 U/L (38-126); Aspartate Aminotransferase 24 IU/L (17-59); BUN Creatinine Ratio 26.8 (6-22); Bilirubin Total 0.4 mg/dL (0.2-1.3); Blood Urea Nitrogen 34 mg/dL (9-20); Calcium 9.2 mg/dL (8.4-10.2); Carbon Dioxide 30 mmol/L (22-32); Chloride 104 mmol/L (98-107); Estimated Glomerular Filt Rate 54 mL/min (>60); Glucose 114 mg/dL (80-110); HEMOLYSIS < 15 (0-50); Potassium 4.1 mmol/L (3.4-5.1); Sodium 139 mmol/L (137-145); Total Protein 6.7 g/dL (6.3-8.2)
[2023-06-14 15:44] LABS: NT-proBNP (BNP-Adult 18+) 3550 pg/mL (<450)
[2023-06-14 16:07] LABS: Neutrophils Absolute Manual 7383 /uL (3000-5900); Total Cells Counted 100
[2023-06-14 16:09] LABS: Anisocytosis 1+; Hypochromasia 1+; Ovalocytes 2+; Polychromasia 1+; Rouleaux 1+
[2023-06-14 17:05] LABS: Troponin I < 0.012 ng/mL (0.01-0.034)
--- NOTE | 2023-06-14 19:24 | PC.NURSE ---
Addendum entered by Thu Martínez R.N. 06/14/23 19:40: Called provider for clarification on orders and was unable to leave a message due to mailbox full. Passed on to night RN. Original Note: Admission note: pt arrived on unit with blood running from ED. RN assessed IV, educated patient on signs and symptoms of transfusion reaction, fluid overload, and IV infiltration/compromise. Pt's vital signs WNL when arrived on unit. Pt needs addressed.
[2023-06-14] MEDS: FUROSEMIDE 40 MG/4 ML VIAL IV (21:18)
[2023-06-14] MEDS: MIRTAZAPINE 15 MG TABLET 7.5 MG PO (21:19)
[2023-06-14] MEDS: DOCUSATE 100 MG CAPSULE PO (21:19)
[2023-06-14] MEDS: TAMSULOSIN 0.4 MG CAPSULE PO (21:21)
[2023-06-15] VITALS (13 sets, daily range): BP systolic 95–134; BP diastolic 44–67; PULSE 53–82; RESP 14–20; TEMP 36.3–37.3; O2SAT 96–98
--- NOTE | 2023-06-15 02:29 | PC.NURSE ---
retail shift manager: Patient is AxOx4, denies pain, SOB, dizziness. Hypotensive (notified MD uGtierrez), otherwise VSS. Held bedtime Carvedilol. 2 units of blood transfused overnight, no adverse reactions noted. 40mg IV Lasix given after first unit of blood per MD order, condom catheter placed. 199 update: Patient O2 saturation drops to 89% while sleeping, placed patient on 1L NC while asleep. Plan of care ongoing.
[2023-06-15] MEDS: PANTOPRAZOLE DR 20 MG TABLET 40 MG PO (05:08)
[2023-06-15 05:37] LABS: Alanine Aminotransferase 13 IU/L (<50); Albumin 3.3 g/dL (3.5-5.0); Albumin Globulin Ratio 1.2 (1.0-2.8); Alkaline Phosphatase 59 U/L (38-126); Aspartate Aminotransferase 22 IU/L (17-59); BUN Creatinine Ratio 28.3 (6-22); Bilirubin Total 0.8 mg/dL (0.2-1.3); Blood Urea Nitrogen 34 mg/dL (9-20); Carbon Dioxide 31 mmol/L (22-32); Chloride 104 mmol/L (98-107); Estimated Glomerular Filt Rate 58 mL/min (>60); Globulin 2.7 g/dL (1.7-4.1); Glucose 101 mg/dL (80-110); HEMOLYSIS 17 (0-50); Potassium 3.9 mmol/L (3.4-5.1); Sodium 139 mmol/L (137-145)
[2023-06-15 05:39] LABS: Add Manual Diff / Slide Review NO; Basophils Absolute Auto 0 /uL (0-100); Basophils Percent Auto 0.3 % (0-2); Eosinophils Absolute Auto 200 /uL (0-450); Eosinophils Percent Auto 2.7 % (2-4); Lymphocytes Absolute Auto 1600 /uL (1100-4500); Lymphocytes Percent Auto 19.7 % (25-40); Mean Corpuscular HGB Conc 34.3 % (30-36); Mean Corpuscular Hemoglobin 32.3 PG (26-34); Mean Corpuscular Volume 94.3 fL (80-100); Monocytes Absolute Auto 800 /uL (0-900); Monocytes Percent Auto 10.1 % (3-14); Neutrophils Absolute Auto 5500 /uL (1500-7000); Neutrophils Percent Auto 67.2 % (50-75); Platelet Count 225 X10^3/uL (150-400); Red Blood Cell Count 2.04 X10^6/uL (4.5-5.9); Red Cell Distribution Width 22.5 % (11.6-14.8); White Blood Cell Count 8.2 X10^3/uL (4.5-11.0)
[2023-06-15 05:41] LABS: Hemoglobin 6.6 g/dL (13.5-17.5)
[2023-06-15 05:42] LABS: Hematocrit 19.2 % (41-53)
[2023-06-15 05:59] LABS: Anisocytosis 2+; Hypochromasia 1+
--- NOTE | 2023-06-15 08:55 | PT-IP ANOTE ---
Pt with SOB, dizziness and hypotension and with Hgb 5.7 last date and now 6.6 after blood received yesterday. Nsg states pt is likely going to receive two more units of blood. Will hold PT until this happens and Hgb increases to a functional range. Thank you.
[2023-06-15] MEDS: DOCUSATE 100 MG CAPSULE PO ×2 (09:07→20:33)
--- NOTE | 2023-06-15 09:17 | OT.IPNOTE ---
Pt with SOB, dizziness and hypotension and with Hgb 5.7 last date and now 6.6 after blood received yesterday. Nsg states pt is likely going to receive two more units of blood. Will hold OT until this happens and Hgb increases to a functional range.
--- NOTE | 2023-06-15 10:47 | DI.ECHO.S_ITS ---
[place] [facility]---------+ [facility] +---------+ : : [address] : : : : [id number] : : : : Phone: [phone]---------+ Echocardiogram Report + + :Name: MICHAEL HERRMANN Study Date: 06/15/2023 Height: 70 in : :[facility] ReadingLocation: Weight: 228 lb: : Gender: Male BSA: 2.2 m2 : :: 1935 Age: 88 yrs BP: 95/44 mmHg: :Reason For Study: PVCS, 3 BEAT RUN OF V TACH : :Ordering Physician: DANNI, : :BEN Performed By: Rhea Sheldon : :Referring: BEN RAZO : + + Interpretation Summary The ejection fraction is estimated to be 45-50%. Mild dsynchronous contraction, inferoapical hypokinesis There is a catheter/pacemaker lead seen in the right atrium. The right atrium is mild to moderately dilated. The right ventricle is borderline dilated. There is mild mitral regurgitation. There is mild tricuspid regurgitation. Procedure: A two-dimensional transthoracic echocardiogram with color flow and Doppler was performed. The study quality was technically adequate. Comparison is made with the echocardiogram of 05/10/2019. The heart rate ranged between 63-84 bpm during the study. Left Ventricle: The left ventricle is mildly dilated. Left ventricular wall thickness is mildly increased. The ejection fraction is estimated to be 45- 50%. Mild dsynchronous contraction, inferoapical hypokinesis. Right Ventricle: The right ventricle is borderline dilated. There is a pacemaker lead in the right ventricle. Atria: The left atrium is moderately dilated. The right atrium is mild to moderately dilated. There is a catheter/pacemaker lead seen in the right atrium. There is no Doppler evidence for an interatrial shunt. Mitral Valve: The mitral valve leaflets appear mildly thickened, but open well. There is mild mitral annular calcification. There is mild mitral regurgitation. Aortic Valve: The aortic valve is trileaflet. The aortic valve opens well. There is no aortic valve stenosis. No aortic regurgitation is present. Tricuspid Valve: The tricuspid valve leaflets are thin and pliable. There is mild tricuspid regurgitation. Pulmonic Valve: The pulmonic valve is not well visualized. There is no pulmonic valvular regurgitation. Great Vessels: The aortic root is normal size. The dimensions of the ascending aorta are normal. The IVC is dilated (diameter is greater than 2.1 cm) and it collapses less than 50% with a sniff. This suggests a high right atrial pressure of 15 mm Hg. Pericardium/ Pleura There is no pericardial effusion. There is a moderate left-sided pleural effusion. MMode/2D Measurements & Calculations LVIDd: 6.0 cm LVOT diam: 2.2 cm LVIDs: 4.3 cm Ao root diam: 3.4 cm FS: 28.5 % asc Aorta Diam: 3.6 cm EPSS: 1.4 cm Ao Arch Diam (Prox Trans): 3.2 cm IVSd: 1.2 cm LVPWd: 0.98 cm LV aguiar. diameter/BSA (cm/m^2): 2.7 LV sys. diameter/BSA (cm/m^2): 1.9 LA A2 area: 30.2 cm2 RA long axis: 6.8 cm LA A4 area: 26.2 cm2 RA area: 27.9 cm2 LA length (vol): 6.7 cm RA vol: 96.4 ml LA vol: 99.6 ml RA : 43.7 ml/m2 LA vol index: 45.1 ml/m2 IVC diam: 2.5 cm RVD1 (basal): 4.2 cm TAPSE: 1.9 cm Doppler Measurements & Calculations Ao V2 max: 175.2 cm/sec LVOT Max Raymundo: 96.8 cm/sec Ao V2 mean: 134.8 cm/sec LV V1 max P.7 mmHg Ao max P.3 mmHg LV V1 VTI: 21.1 cm Ao mean P.7 mmHg GORGE(I,D): 2.1 cm2 Ao V2 VTI: 39.7 cm GORGE(V,D): 2.2 cm2 sev ratio: 0.53 GORGE indexed to BSA (cm^2/m^2): 0.95 MV E max raymundo: 124.0 cm/sec PA V2 max: 102.2 cm/sec MV A max raymundo: 84.1 cm/sec PA V2 mean: 75.1 cm/sec MV E/A: 1.5 PA mean P.4 mmHg Med Peak E' Raymundo: 6.9 cm/sec PA pr(Accel): 39.6 mmHg E/E' med: 17.9 Lat Peak E' Raymundo: 9.8 cm/sec E/E' lat: 12.7 E/e' average: 15.3 MV dec time: 0.25 sec SV(LVOT): 83.4 ml Reading Physician:12:32 PM
--- NOTE | 2023-06-15 11:10 | PC.NURSE ---
Addendum entered by Ni Troy R.N. 06/15/23 16:04: Patients second unit of blood infused, patient tolerated this well. He will get a lab draw for H&H at 1630 Addendum entered by Ni Troy R.N. 06/15/23 14:33: Patient had a 10 beat run of vtach, and then a few minutes later an 8 beat run of vtach. Phoned and she has ordered a bmp and mag level. Original Note: Patient had some pvcs and a 3 beat run of vtach, called who is aware and she ordered and ECHO. This is being done at this time. He is tolerating his 1u of PRBCs, which was hung at 0935 and will get 40mg of iv lasix between each unit. Visiting with now.
[2023-06-15] MEDS: FUROSEMIDE 40 MG/4 ML VIAL IV (12:30)
--- NOTE | 2023-06-15 13:12 | CM.DANOTE ---
Patient is an 88 yo male who was admitted INPT in 06/14/23 for SOB and weakness. Pt has MCR and BX FED for insurance and his PCP is Dr. Gutierrez. EMR was reviewed. Per , pt with hx of AFIB and stent placement in Mar 2023 this year and admitted for severe anemia and requiring 4 units of blood so far and not yet medically stable to discharge and currently on 2LO2. PT/OT ordered and on hold for today due to pt's H&H. SW met bedside with pt and spouse and explained role and they confirm that they live at home in [place] and both are mostly active and independent at baseline and both drive. Pt has FWW and cane at home for use for longer distances. Pt has POLST and DPOA pwk at home and spouse will bring in a copy to scan into EMR and pt confirms that spouse is his DPOA. They have an adult Dtr who lives in another state and is supportive and involved but not local. Pt has a good friend who is an RN who helps at times with medical questions when needed. Pt has a hx of [facility] in 2020 after his last admission requiring surgery and TPN and pt also has a hx of HH and spouse thinks it was [facility] and they found it very helpful. Pt and spouse confirm that pt is currently below baseline and feeling weak and fatigued due to anemia and preference is to discharge home with new referral to HH and hopeful to avoid SNF at discharge. Spouse will confirm tonight if they used [facility] last time as they would like to utilize the same HH agency if possible. F2F done. Pt confirms he is still established at [facility] as he is 100% service connected but has not needed to pursue in-home caregiver support yet [facility] but had [facility] to [facility] during last admission a couple years ago and aware of the supports that might be an option. Plan: SW to follow closely for PT/OT eval tomorrow if pt more medically stable with H&H to confirm safe preference of home with HH and which HH agency preference from spouse. ILSA Salazar Discharge Planning/Care Management CM Discharge Assessment Start: 06/15/23 13:09 Freq: Status: Active Protocol: Document 06/15/23 13:09 BF (Rec: 06/15/23 13:12 BF [id number]) Discharge Planning Assessment Assigned Senior Applications Analyst ILSA Silva DPOA/Assigned Designee Name spouse Kaykay, will bring copy in to scan into EMR Contact Information [phone] Advance Directives? Yes Advance Directives on File Yes History Provided By Patient,Significant Other, Medical Record Has Patient been admitted in last 30 No days? Comment last admit in 2020 and went to [facility] Prior Living Arrangements House Household Members spouse Type of transporation used prior to Drives own vehicle admit Independent with ADL's Yes Is patient alert and oriented? Yes Needs Assistance With Home Chores / Shopping Caregiver for Another No DME Already Rented / Owned FWW / Walker,Cane Patient/Family Preference Home with Home Health Comment Pending PT/OT, pt wants HH but does not want SNF Barriers to Discharge No Discharge Plan Home with Home Health Community Services Physical Therapy,Occupational Therapy,Home Health Aid,Home Health Nurse Transportation Arrangement If safe for home, spouse can transport at d/c Referrals Initiated Home Health Additional Comment wants [facility] as they have used them before If patient plan is home with home health Yes : Has signed face to face form been completed? Medicare Choice List Provided Yes Medicare choice list reviewed on patient,family electronic tablet with SNF/HH Preference [facility] Whiteboard Updated in Patient Room with Yes name and ext. # of Senior Applications Analyst Review Status In Process Please Provide Date Initial DC 06/15/23 Assessment Was Performed Next Review Type Continued Stay Review
--- NOTE | 2023-06-15 13:28 | PM.HP.1 ---
History of Present Illness History of Present Illness Date Patient Seen: 06/15/23 Time Patient Seen: 08:00 Chief complaint: SOB on exertion Narrative: This is a very pleasant 88-year-old male who is well known to me. Patient is admitted for severe anemia with exertional dyspnea thought to be from the same. Patient has a very complicated past medical history. He recently underwent a minimally invasive CABG x2 and stent replacement at [facility] in [facility]. He apparently had anaphylaxis and cardiac arrest with protamine, the reversal agent after they were giving him the stent. He ended up requiring 3 units of packed red blood cells. He was discharged home and since that time he has had symptoms of difficulty breathing. He went to the ER on May 31 and was given IV diuresis with excellent response. He then was seen by me on the and was in stable and improved condition and seen by Hematology on June 02 for a history of iron-deficiency anemia which the cloth presser felt was more likely anemia of chronic disease. He was remaining in the upper 8 4 his hemoglobin since he was discharged from [facility]. His iron was increased orally. He then had sudden onset of markedly worsened dyspnea on exertion yesterday which was the day of admission and presented to the emergency room and was found to have severe normocytic anemia. A rectal exam was done at that time but for some reason guaiac not performed. Soft brown stool was noted. Patient said he had 1 episode of black tarry stools but he said this was just 1 episode with no recurrence and he thought it was iron. He has been eating better he has not had any abdominal complaints but prior when I saw him in the clinic he was having symptoms of just not being hungry. He was placed on mirtazapine for this reason and due to difficulty sleeping and he is feeling much better. Twelve point review of systems is negative other than above Patient denies any chest pain Patient denies any palpitations or presyncope or syncope or lightheadedness or dizziness Patient denies any bright red blood per rectum, hematochezia, melena, hematemesis Patient has had blood SPECT in his sputum He has not been having significant cough or sputum but mild No fevers No rashes No abdominal pain Swelling has been improved from what it was 2 weeks ago but still is having swelling Did have a hematoma from having the CABG but this is resolved Past medical history: 1. Coronary artery disease status post minimally invasive CABG with stent placement in March of 2023 at [facility] in [facility] 2. Chronic anemia 3. Type 2 diabetes, diet controlled 4. Hyperlipidemia 5. Hypertension 6. Family history of colon cancer in his mom 7. GERD 8. BPH 9. Paroxysmal atrial fibrillation 10. Lumbar radiculopathy 11. 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 Obesity Allergies: Multiple reviewed. Protamine added. Past surgical history: March 2023 CABG 04/30/2011 pacemaker Health related behavior: Twenty pack year history of tobacco abuse but quit in 1974, does not use alcohol, does not use illicit drugs Social history: Patient is retired he lives in [place] with his in their home. They have excellent support through their children and friends Family history: Mother of colon cancer [facility] Medical History Facet arthropathy, lumbar Impingement syndrome of left shoulder Herniated nucleus pulposus, lumbar Compression fracture of L3 lumbar vertebra Lumbar stress fracture Lumbar radiculopathy Morbid obesity Enlarged prostate with urinary retention Hypertension Atrial fibrillation Pacemaker Diabetes Bladder stones Family History Mother Cancer Social History household members: spouse Smoking Status: Former smoker alcohol intake: former Meds Home Medications and Allergies Home Medications Medication Instructions Recorded Confirmed Type apixaban 5 mg tablet (Eliquis) 5 mg PO BID #60 tabs 09/29/20 06/15/23 Rx carvedilol 25 mg tablet 25 mg PO BID 02/27/22 06/14/23 History saffron extract 176.5 mg tablet 176.5 mg PO DAILY 09/17/22 06/14/23 History furosemide 40 mg tablet (Lasix) 40 mg PO DAILY #7 tabs 06/01/23 06/14/23 Rx ferrous sulfate 325 mg (65 mg 325 mg PO Q48H 06/12/23 06/15/23 History iron) tablet tamsulosin 0.4 mg capsule 0.4 mg PO BEDTIME 06/12/23 06/14/23 History atorvastatin 40 mg tablet 40 mg PO DAILY 06/14/23 06/14/23 History clopidogrel 75 mg tablet 75 mg PO DAILY 06/14/23 06/14/23 History pantoprazole 40 mg tablet,delayed 40 mg PO DAILY@0600 06/14/23 06/15/23 History release azelastine 137 mcg (0.1 %) nasal 1 spray intranasal DAILY PRN 06/15/23 06/15/23 History spray aerosol allergies losartan 25 mg tablet 25 mg PO DAILY 06/15/23 06/15/23 History polyethylene glycol 3350 17 gram 17 g PO DAILY PRN Constipation 06/15/23 06/15/23 History oral powder packet Allergies Allergy/AdvReac Type Severity Reaction Status Date / Time protamine Allergy Severe Anaphylaxis Verified 06/15/23 13:24 shellfish derived Allergy Intermediate Hives Verified 06/12/23 11:27 lisinopril Allergy Unknown Verified 06/12/23 11:27 moricizine [From Ethmozine] Allergy Unknown Verified 06/12/23 11:27 Penicillins AdvReac Mild Anxiety Verified 06/15/23 10:39 Exam Vital Signs (past 8 hours): - 06/15/23 08:00 06/15/23 08:44 06/15/23 09:38 Temperature 98.0 F 98.0 F Pulse Rate 75 75 Respiratory Rate 16 Blood Pressure 117/52 L 117/52 L Pulse Oximetry 98 98 Oxygen Delivery Method Nasal Cannula Oxygen Flow Rate 1 1 Fraction of Inspired Oxygen 06/15/23 09:50 06/15/23 12:00 06/15/23 12:16 Temperature 97.5 F L 98.8 F Pulse Rate 82 80 Respiratory Rate 20 18 18 Blood Pressure 95/44 L 134/67 Pulse Oximetry Oxygen Delivery Method Oxygen Flow Rate Fraction of Inspired Oxygen 06/15/23 12:55 Temperature 98.8 F Pulse Rate 80 Respiratory Rate 18 Blood Pressure 134/67 Pulse Oximetry Oxygen Delivery Method Oxygen Flow Rate Fraction of Inspired Oxygen Fraction of Inspired Oxygen SaO2/FiO2 Ratio 408 Oxygen Delivery Method Nasal Cannula Oxygen Flow Rate 1 Narrative Exam Narrative: Patient is alert and oriented no apparent distress. He is able to give an excellent history as well as able to give us the email of the surgeon he used at [facility] in [facility]. He appears pale but resting comfortably in hospital bed HEENT unremarkable Neck: Supple without adenopathy, thyromegaly or jugular venous distention Chest: Clear to auscultation with no wheezes rhonchi or crackles Cor: Regular rate and rhythm with distant S1-S2 Abdomen: Positive bowel sounds, no masses, no tenderness, no guarding Extremities: 2+ pitting edema lower extremity, pulses intact Neurologic exam nonfocal Skin: Chest tube sites are well-healed. Some scar tissue at site of surgery for CABG Objective Labs 06/15/23 04:45 06/15/23 04:45 Labs: Laboratory Results - last 24 hr 06/14/23 06/14/23 06/14/23 15:15 15:39 16:35 WBC 10.7 RBC 1.75 L Hgb 5.7 L* Hct 17.1 L* MCV 97.6 MCH 32.3 MCHC 33.1 RDW 22.8 H Plt Count 258 Neut % (Auto) Not Reportable Lymph % (Auto) Not Reportable [place] % (Auto) Not Reportable Eos % (Auto) Not Reportable Baso % (Auto) Not Reportable Neut # (Auto) Lymph # (Auto) Not Reportable [place] # (Auto) Not Reportable Eos # (Auto) Baso # (Auto) Not Reportable Total Counted 100 Seg Neutrophils % 68.0 Band Neutrophils % 1.0 L Lymphocytes % (Manual) 6.0 L Atypical Lymphs % 6.0 H Monocytes % (Manual) 14.0 H Eosinophils % (Manual) 4.0 Basophils % (Manual) 1.0 Neutrophils # (Manual) 7383 H RBC Morphology See below Polychromasia 1+ H Hypochromasia 1+ H Anisocytosis 1+ H Ovalocytes 2+ H Rouleaux 1+ H PT 21.3 H INR 1.8 H Sodium 139 Potassium 4.1 Chloride 104 Carbon Dioxide 30 BUN 34 H Creatinine 1.27 H Estimated GFR 54 L BUN/Creatinine Ratio 26.8 H Glucose 114 H Calcium 9.2 Total Bilirubin 0.4 AST 24 ALT 15 Alkaline Phosphatase 73 Troponin I < 0.012 NT-Pro-B Natriuret Pep 3550 H Total Protein 6.7 Albumin 3.7 Globulin 3.0 Albumin/Globulin Ratio 1.2 Blood Type O Negative Antibody Screen Negative Crossmatch See Detail 06/15/23 04:45 WBC 8.2 RBC 2.04 L Hgb 6.6 L* Hct 19.2 L* MCV 94.3 D MCH 32.3 MCHC 34.3 RDW 22.5 H Plt Count 225 Neut % (Auto) 67.2 Lymph % (Auto) 19.7 L [place] % (Auto) 10.1 Eos % (Auto) 2.7 Baso % (Auto) 0.3 Neut # (Auto) 5500 Lymph # (Auto) 1600 [place] # (Auto) 800 Eos # (Auto) 200 Baso # (Auto) 0 Total Counted Seg Neutrophils % Band Neutrophils % Lymphocytes % (Manual) Atypical Lymphs % Monocytes % (Manual) Eosinophils % (Manual) Basophils % (Manual) Neutrophils # (Manual) RBC Morphology See below Polychromasia Hypochromasia 1+ H Anisocytosis 2+ H Ovalocytes Rouleaux PT INR Sodium 139 Potassium 3.9 Chloride 104 Carbon Dioxide 31 BUN 34 H Creatinine 1.20 Estimated GFR 58 L BUN/Creatinine Ratio 28.3 H Glucose 101 Calcium 9.0 Total Bilirubin 0.8 AST 22 ALT 13 Alkaline Phosphatase 59 Troponin I NT-Pro-B Natriuret Pep Total Protein 6.0 L Albumin 3.3 L Globulin 2.7 Albumin/Globulin Ratio 1.2 Blood Type Antibody Screen Crossmatch Assessment & Plan Assessment & Plan narrative: Very pleasant 88-year-old male who is well known to me admitted for profound anemia with shortness of breath with exertion secondary to this. Assessment 1. Profound anemia status post 2 units packed red blood cells with an inadequate response to transfusion. We will type and cross and administer another 2 units of packed red blood cells with 40 mg of IV Lasix in between and we will continue to monitor closely for evidence of blood loss and etiology of this anemia. Suspect multifactorial patient with chronic microcytic anemia secondary to chronic disease. He has had iron deficiency anemia and had iron infusions per Hematology previously. He recently met with Dr. Espinal to discuss this and he felt it was probably chronic disease and not iron deficiency anemia. Rectal exam was done in the ER but was not checked for guaiac. Patient denies any significant melena or evidence of blood loss but I wonder if he isn't having oozing potentially from his GI tract which is exacerbated by the dual therapy with Plavix and Eliquis. Plan: Patient requires admission to the hospital due to profound anemia and need for treatment and further workup. Two further units of bladder to be transfused and will reassess after. Will guaiac stools. Will treat with Protonix IV. Will continue to hold Plavix and Eliquis. I did discuss this with patient's surgeon at [facility] as well as local care program resident, Dr. Magdaleno Huntley who is on-call for patient's primary care program resident Dr. Fu. Patient's surgeon discuss with Cardiology and thought that we could do single therapy with Plavix and this would cause less GI problems. I will reinitiate Plavix once I C appropriate response to transfusion and stools are guaiac negative. We will continue to hold Eliquis for now. Fortunately patient isn't having any significant cardiac symptoms despite this profound anemia. We will continue to monitor closely. We will do an echo to rule out evidence of blood in the pericardial sac. Chest x-ray did not show any significant abnormality or significant effusion. Reviewed CTA that was done on May 31 as well. Assessment 2. Coronary artery disease with recent minimally invasive CABG x2 and subsequent stent placement done end of March at [facility] in [place]. Plan: As above I reviewed with patient's surgeon Dr. Vega and I will hold Plavix and Eliquis and hope to restart Plavix tomorrow pending on patient's H&H and further evidence of bleeding. We will continue with risk reduction with Coreg, atorvastatin, losartan 25 mg daily and Lasix as needed Assessment 3. Diet-controlled type 2 diabetes Plan: Patient will be placed on a diabetic diet and will continue to monitor Assessment 4. Chronic kidney disease Plan: Will continue to watch closely especially as we give higher doses of diuretic in between blood transfusions Assessment 5. BPH with lower urinary tract symptoms Plan: Will continue with tamsulosin Assessment 6. Patient was having difficulty sleeping, anorexia and mirtazapine was started with good success Plan: Will continue same Code status is full code 85 minutes was spent with this patient reviewing his chart discussing with physicians both surgeons and care program resident as well as ER physician and nursing staff in meeting with patient and formulating a plan and documentation. Quality VTE Deep Vein Thrombosis/Pulmonary Embolism Present on Admission: No
[2023-06-15 14:27] LABS: Creatine Kinase 25 U/L (55-170)
[2023-06-15 14:40] LABS: Troponin I < 0.012 ng/mL (0.01-0.034)
[2023-06-15 15:10] LABS: Blood Urea Nitrogen 34 mg/dL (9-20); Calcium 9.1 mg/dL (8.4-10.2); Carbon Dioxide 33 mmol/L (22-32); Chloride 104 mmol/L (98-107); Estimated Glomerular Filt Rate 55 mL/min (>60); Glucose 152 mg/dL (80-110); HEMOLYSIS < 15 (0-50); Magnesium 1.9 mg/dL (1.6-2.3); Potassium 4.6 mmol/L (3.4-5.1); Sodium 139 mmol/L (137-145)
--- NOTE | 2023-06-15 16:35 | DIET.CONS ---
Dietary Consultation Note Admission Date: 06/14/2023 16:18 Assessment: 88 y M admitted for anemia. Nutrition consulted for weight loss in admission screen. Met with pt and spouse at bedside. Pt reports that from August 2022 to Mar 2023, he intentionally went on a crash diet to lose weight. Reports 40 lb. weight loss. He reports his appetite was previously down, but he was placed on mirtazapine, and appetite has returned. Per chart, diabetes is controlled with diet. Ht: 177.8 cm Wt: 103.419 kg BMI: 32.7 UBW: -119.522 kg on 09/17/22, 13.5% weight loss in 9 months (non-severe) -125.702 kg on 06/11/22, 17.7% weight loss in 1 year (non-severe) Last BM: 06/13/23 (06/14/23 18:40) MNA: 8 Bear Score: 19 Diet: 06/14/23 Dinner Carbohydrate Consistent Diet Diet Modifications: Carbohydrate level: Medium (3 CHO) Bedtime snack: Yes Reflex DM orders: No Heart Healthy Diet Diet Modifications: Nutrition Percent Meal Consumed 75% 06/15/23 13:04 Percent Meal Consumed 50% 06/15/23 10:04 Percent Meal Consumed 100% 06/14/23 18:00 Labs: RBC 2.04 X10^6/uL (4.5-5.9) L 06/15/23 04:45 Hgb 6.6 g/dL (13.5-17.5) L* 06/15/23 04:45 Hct 19.2 % (41-53) L* 06/15/23 04:45 Creatinine 1.26 mg/dL (0.66-1.25) H 06/15/23 14:05 NT-Pro-B Natriuret Pep 3550 pg/mL (<450) H 06/14/23 15:15 Nutrition Diagnosis: No nutrition diagnosis at this time. Interventions: 1. Encouraged continual adequate intake and per pt and spouse request, reviewed good sources of iron in foods. EER: 7221-5570 kcals/day (20-22 kcals/kg compared with [place] [address] jeor w/ stress factor 1.25) 70-80 grams PRO/day (0.8-0.9 g/kg) Monitoring/Evaluations: PO intake, BG Electronically Signed by: Ana Luisa Zavaleta 06/15/23 16:35 Clinical Dietitian [address] [id number]
[2023-06-15 16:50] LABS: Hematocrit 25.4 % (41-53); Hemoglobin 8.6 g/dL (13.5-17.5)
[2023-06-15] MEDS: PANTOPRAZOLE 40 MG VIAL IV (18:56)
[2023-06-15] MEDS: MIRTAZAPINE 15 MG TABLET 7.5 MG PO (20:33)
[2023-06-15] MEDS: TAMSULOSIN 0.4 MG CAPSULE PO (20:34)
[2023-06-15] MEDS: carvediloL 12.5 MG TABLET 25 MG PO (20:36)
[2023-06-16] VITALS (7 sets, daily range): BP systolic 105–136; BP diastolic 43–65; PULSE 61–82; RESP 16–19; TEMP 36.3–36.9; O2SAT 95–97
[2023-06-16 05:49] LABS: Add Manual Diff / Slide Review NO; Basophils Absolute Auto 0 /uL (0-100); Basophils Percent Auto 0.2 % (0-2); Eosinophils Absolute Auto 300 /uL (0-450); Eosinophils Percent Auto 3.2 % (2-4); Hematocrit 25.6 % (41-53); Hemoglobin 8.8 g/dL (13.5-17.5); Lymphocytes Absolute Auto 1300 /uL (1100-4500); Lymphocytes Percent Auto 16.3 % (25-40); Mean Corpuscular HGB Conc 34.4 % (30-36); Mean Corpuscular Volume 93.2 fL (80-100); Monocytes Absolute Auto 700 /uL (0-900); Monocytes Percent Auto 8.5 % (3-14); Neutrophils Absolute Auto 6000 /uL (1500-7000); Neutrophils Percent Auto 71.8 % (50-75); Platelet Count 225 X10^3/uL (150-400); Red Blood Cell Count 2.75 X10^6/uL (4.5-5.9); Red Cell Distribution Width 19.9 % (11.6-14.8); White Blood Cell Count 8.3 X10^3/uL (4.5-11.0)
[2023-06-16 05:59] LABS: BUN Creatinine Ratio 24.8 (6-22); Blood Urea Nitrogen 31 mg/dL (9-20); Calcium 9.2 mg/dL (8.4-10.2); Carbon Dioxide 32 mmol/L (22-32); Chloride 104 mmol/L (98-107); Estimated Glomerular Filt Rate 55 mL/min (>60); Glucose 107 mg/dL (80-110); HEMOLYSIS < 15 (0-50); Potassium 3.9 mmol/L (3.4-5.1); Sodium 140 mmol/L (137-145)
--- NOTE | 2023-06-16 07:00 | DI.US.S_ITS ---
PROCEDURE: US ABDOMEN COMPLETE INDICATIONS: PAIN TECHNIQUE: Real-time scanning was performed of the abdominal and retroperitoneal organs, with image documentation. COMPARISON: None. FINDINGS: Evaluation is limited secondary to bowel gas and patient body habitus. Liver: Liver is normal in size and homogeneous in echotexture. Simple cyst in the right hepatic lobe measuring 2 x 1 x 2.1 cm. Gallbladder: Surgically absent. Biliary ducts: Intrahepatic bile ducts are non-dilated. Extrahepatic bile duct caliber measures 6.4 mm. Normal is 6-7 mm or less in diameter, or 10 mm or less post-cholecystectomy. Pancreas: Visualized portions of the pancreas are sonographically normal. Spleen: Spleen is normal in size and homogeneous in echotexture. Kidneys: Kidneys are normal in size and echotexture. Right kidney measures 10.6 cm long; left kidney measures 12.6 cm long. No hydronephrosis or nephrolithiasis. No solid masses. Anechoic simple cyst measuring 3.9 x 3.3 x 3.6 cm. No complex cystic lesions which require follow-up. Aorta: Visualized aorta is normal in caliber at less than 3 cm. Of note the distal abdominal aorta is not well seen secondary to bowel gas. IVC: Intrahepatic inferior vena cava is patent. Miscellaneous: No free abdominal fluid. IMPRESSION: Evaluation is limited secondary to bowel gas and patient body habitus. 1. Within these limitations, no sonographic findings to explain patient's abdominal pain. 2. Cholecystectomy. No biliary ductal dilatation. Dictated by: Sesar Bravo M.D. on 06/16/2023 at 9:15 Approved by: Sesar Bravo M.D. on 06/16/2023 at 9:26
--- NOTE | 2023-06-16 07:53 | DI.RAD.S_ITS ---
PROCEDURE: XR CHEST 2V INDICATIONS: sob TECHNIQUE: 2 views of the chest were acquired. COMPARISON: [facility], CR, XR CHEST 1V, 06/14/2023, 14:53. FINDINGS: Surgical changes and devices: Left cardiac pacemaker. Lungs and pleura: Minimal diffuse interstitial prominence and mild perihilar airway thickening. Mild central vascular congestion. No substantial pleural effusion. No pneumothorax. Mediastinum: The cardiomediastinal contours remain stable with enlargement of the cardiac silhouette. Bones and chest wall: No suspicious bony abnormalities. Soft tissues appear unremarkable. IMPRESSION: Cardiomegaly with findings suggestive of mild pulmonary edema/CHF. No focal consolidation identified. Dictated by: Eron Lowery M.D. on 06/16/2023 at 11:06 Approved by: Eron Lowery M.D. on 06/16/2023 at 11:08
--- NOTE | 2023-06-16 08:51 | PC.NURSE ---
Addendum entered by Ni Troy R.N. 06/16/23 13:57: Patients blood pressure 90s/33 today. Blood pressure meds carvedilol and cozaar held this morning. is aware of this, she ordered a dose of po lasix 40mg and this has been given. He is talking to the the surgeon now, who is going to order a CT scan. Original Note: Patient up to chair this morning, he used a walker and is steady on his feet. Voiding per urinal now, condom catheter taken off as it leaked. Patient had a bowel movement and now he is resting after eating breakfast. He had a bowel movement and this did guiac positive for blood this morning. Called office and they are going to let her know.
[2023-06-16] MEDS: PANTOPRAZOLE 40 MG VIAL IV (09:59)
[2023-06-16] MEDS: ATORVASTATIN 20 MG TABLET 40 MG PO (09:59)
[2023-06-16] MEDS: DOCUSATE 100 MG CAPSULE PO ×2 (09:59→22:07)
[2023-06-16] MEDS: FERROUS SULFATE 325 MG TABLET PO (10:01)
--- NOTE | 2023-06-16 10:23 | OT.IP.EVAL ---
Current Diagnoses Anemia, unspecified (06/14/23) Past Medical History (Last Reviewed 06/15/23 @ 13:29 by Freya Gutierrez MD) Atrial fibrillation Bladder stones Compression fracture of L3 lumbar vertebra Diabetes Enlarged prostate with urinary retention Facet arthropathy, lumbar Herniated nucleus pulposus, lumbar Hypertension Impingement syndrome of left shoulder Lumbar radiculopathy Lumbar stress fracture Morbid obesity Pacemaker Occupational Therapy Inpatient Evaluation/Re-Eval M1 PT/OT-IP Prior Functional Status Start: 06/15/23 08:40 Freq: NEEDED Status: Active Protocol: Document 06/16/23 15:01 CGR (Rec: 06/16/23 15:13 CGR [id number]) Medical Review Prior Functional Status Medical History Reviewed Yes Communication able to make needs known Mobility and Gait pt stated that he was modified independent with all mobilities and ambulation without AD Activities of Daily Living and IADL's Pt states that he was ind in all ADLs but had difficulty putting socks on at baseline. His typically would don socks for him. Social History Household Members spouse Living Arrangements House Number of Floors (Floors) One Floor Number of Stairs To Enter/Railing? no steps to enter Home Environment High Toilet,Walk in Shower Home Equipment Four Wheel Walker,Straight Cane,Raised Toilet Seat w/ Armrests,Shower Seat with Backrest,Hand Held Shower,Grab Bars In Shower Employment Status Retired Additional Social History Comment Pt has a flat bed and lives with his Kaykay who is able to assist as needed. M2 OT-IP Current Condition Start: 06/16/23 15:01 Freq: Status: Active Protocol: Document 06/16/23 15:01 CGR (Rec: 06/16/23 15:13 CGR [id number]) Occupational Therapy Current Condition Current Condition Evaluation Date 06/16/23 Treatment Diagnosis SOB, low H&H. Recent bypass sx , minimally invasive March 2023 Diagnosis Onset Date 06/14/23 M3 OT- IP Subjective and Pain Start: 06/16/23 15:01 Freq: Status: Active Protocol: Document 06/16/23 15:01 CGR (Rec: 06/16/23 15:13 CGR [id number]) OT- Subjective Occupational Therapy Visit Type Type Initial Evaluation Visit Start Time 10:00 Visit Stop Time 10:23 Notes Pts present throughout OT Pain Assessment Pain When Pain Assessed At Rest Pain Present Pain Present Denied Pain M4 OT- IP ADL's Start: 06/16/23 15:01 Freq: Status: Active Protocol: Document 06/16/23 15:01 CGR (Rec: 06/16/23 15:13 CGR [id number]) OT [id number] Comments OT Self-Feeding Comments not meal time OT ADL-Grooming General Evaluation Grooming Ability Independent Areas Needing Assistance Retrieving/Set-up of Grooming Items,Combing/Brushing Hair, Face Washing Comments OT Grooming Comments standing at sink OT ADL-Oral Care General Eval Oral Care Ability Independent Devices Oral Care Devices Toothbrush Comments Oral Care Comments standing at sink OT ADL-Dressing General Eval Lower Body Dressing Ability Total Assistance Areas Needing Assistance Socks Comments OT Dressing Comments Pt states his performs LB dressing at baseline. OT ADL-Toileting General Evaluation Toileting Ability Independent Comments OT Toileting Comments pt simulated toileting seated on toilet. OT ADL-Bathing Comments OT Bathing Comments pt just exited the shower with nursing assist prior to OT entering the room. M5 OT- IP IADL's Start: 06/16/23 15:01 Freq: Status: Active Protocol: Document 06/16/23 15:01 CGR (Rec: 06/16/23 15:13 CGR [id number]) OT-Instrumental Activities of Daily Living Deficits IADL Deficits Identified No Deficits Home Safety Awareness Awareness of Need for Assistance at Home Good Awareness Ability to Problem Solve Emergency Able to Problem Solve Situations Medication Management Medication Management No Deficits Identified Money Management Money Management No Deficits Identified Meal Preparation Meal Preparation No Deficits Identified Cattle Care Worker Cattle Care Worker No Deficits Identified Driving Driving Comments 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 OT- IP Functional Cognition Start: 06/16/23 15:01 Freq: Status: Active Protocol: Document 06/16/23 15:01 CGR (Rec: 06/16/23 15:13 CGR [id number]) Cognitive Factors Limiting Selfcare Function Cognitive Ability Level of Alertness Alert Patient Orientation Name,Age,Birthday,Month,Date, Year,Day of Week,Place, Situation Attention Span Ability Capable of Focused Attention, Capable of Sustained Attention OT- Vision and Hearing OT- Hearing Assessment OT- Hearing Assessment Hearing Impaired,Use of Hearing Aids OT- Vision Assessment Visual Acuity Glasses All The Time Visual Attentiveness WFL Occular Pursuits WFL Visual Convergence WFL Vision Assessment Comments Pt has bifocals M7 OT- IP Mobility and Balance Start: 06/16/23 15:01 Freq: Status: Active Protocol: Document 06/16/23 15:01 CGR (Rec: 06/16/23 15:13 CGR [id number]) OT-Transfer Assessment Sit to and From Stand Sit to and from Stand Standby Assistance Transfers Transfer Ability Standby Assistance Technique Transfer Destination Bed,Chair,Toilet Transfer Technique Stand Step Pivot Devices Transfer Assistive Devices Gait Belt,Front Wheeled Walker Comments Mobility Comments mobility around the room and bathroom OT- Gait Assessment Gait Gait Assistance Required: Standby Assistance Assistive Devices Assistive Device Gait Belt,Front Wheeled Walker Comments Gait Ability Comments mobility around the room and bathroom OT- Balance Assessment Sitting Balance and Reactions Static Sitting Balance Ability Good Dynamic Sitting Balance Ability Good M8 OT- IP Objective Assessments Start: 06/16/23 15:01 Freq: Status: Active Protocol: Document 06/16/23 15:01 CGR (Rec: 06/16/23 15:13 CGR [id number]) OT Gross Range of Motion Upper Extremity Range of Motion Assessment Within Functional Limits ROM Impairments slight limitation to the L shld, pt states since heart sx . OT Strength Upper Extremity Strength Assessment Within Functional Limits Comments Strength Comments grossly 4/5 OT- Coordination Assessment Upper Extremity Finger to Nose Test Within Functional Limits Finger Tapping Test Within Functional Limits OT-Muscle Tone Assessment Muscle Tone WNL Yes OT Sensation Assessment Edema Edema Present Edema Comments BLE edema, pt states he feels like it is puffy M9 OT- IP Assessment and Plan Start: 06/16/23 15:01 Freq: Status: Active Protocol: Document 06/16/23 15:01 CGR (Rec: 06/16/23 15:13 CGR [id number]) OT Summary Assessment and Plan Potential Rehabilitation Potential Excellent Analytic Complexity at Evaluation Low Summary OT Impairments Functional Mobility,Activity Tolerance Progress Towards Goals Progressing Toward Goals Assessment Summary Pt presents as a low complexity evaluation s/p admit for SOB. Pt was found to have low H&H and received 4 units of blood and now appears to be at or close to his baseline. No further OT needs. Recommend home with family support. Frequency of Treatment Frequency Of Treatment Discharge Discharge Recommendations OT Discharge Recommendations Home with Assistance Transportation Needs at Discharge Private Vehicle
--- NOTE | 2023-06-16 11:00 | PT.IIE ---
Current Diagnoses Anemia, unspecified (06/14/23) Medical History (Last Reviewed 06/15/23 @ 13:29 by Freya Gutierrez MD) Atrial fibrillation Bladder stones Compression fracture of L3 lumbar vertebra Diabetes Enlarged prostate with urinary retention Facet arthropathy, lumbar Herniated nucleus pulposus, lumbar Hypertension Impingement syndrome of left shoulder Lumbar radiculopathy Lumbar stress fracture Morbid obesity Pacemaker Physical Therapy Inpatient Evaluation/Re-Eval M1 PT/OT-IP Prior Functional Status Start: 06/15/23 08:40 Freq: NEEDED Status: Active Protocol: Document 06/16/23 11:00 AB (Rec: 06/16/23 14:19 AB [id number]) Medical Review Prior Functional Status Medical History Reviewed Yes Communication able to make needs known Mobility and Gait pt stated that he was modified independent with all mobilities and ambulation without AD Social History Household Members spouse Living Arrangements House Number of Floors (Floors) One Floor Number of Stairs To Enter/Railing? no steps to enter Home Environment High Toilet,Walk in Shower Home Equipment Four Wheel Walker,Shower Seat with Backrest,Hand Held Shower ,Grab Bars In Shower M2 PT-IP Current Condition Start: 06/15/23 08:40 Freq: NEEDED Status: Active Protocol: Document 06/16/23 11:00 AB (Rec: 06/16/23 14:19 AB [id number]) Physical Therapy Current Condition Current Condition Evaluation Date 06/16/23 Treatment Diagnosis anemia; difficulty in walking Onset Date 06/14/23 M3 PT-IP Subjective Start: 06/15/23 08:40 Freq: NEEDED Status: Active Protocol: Document 06/16/23 11:00 AB (Rec: 06/16/23 14:19 AB [id number]) Subjective Physical Therapy Visit Type Type Initial Evaluation Visit Start Time 11:00 Visit Stop Time 11:30 Number of RECOVERY AUDITOR Visits 0 Physical Therapy Visit Comments Patient Comments agreeable to do PT M4 PT-IP Mobility and Gait Start: 06/15/23 08:40 Freq: NEEDED Status: Active Protocol: Document 06/16/23 11:00 AB (Rec: 06/16/23 14:19 AB [id number]) PT-Bed Mobility Assessment Supine to Sit Supine to Sit Standby Assistance Sit to Supine Sit to Supine Standby Assistance PT-Transfer Assessment Sit to and From Stand Sit to and from Stand Contact Guard Assistance Equipment Transfer Assistive Device None,Gait Belt,Front Wheeled Walker Orthotic/Prosthetic Devices or Brace: No Transfers Transfer Destination Bed,Chair Transfer Technique Stand Step Pivot Transfer Ability Level of Assist Contact Guard Assistance,1 Person Assistance,Use of Upper Extremities Comments Mobility Comments pt sitting on the chair and agreeable to do PT. spouse in room with pt. obtained PLOF and home set up from pt and spouse. BP in sittin/35 . pt completed sit to stand CGA and ambulated to EOB CGA using FWW ~ 25 ft. BP checked : 110/48. no c/o dizziness but c/o muffled sound on his ears . completed sit <>supine SBA. completed sit to stand from EOB CGA and ambulated to chair without AD min A. presents with unsteady antalgic gait. pt sat on the chair. positioned on the chair. call light and table placed within reach. educated pt regarding safety and use of walker at this time. bP sitting on the chair: 111/37. informed nurse regarding low BP. spouse stated that pt's 4WW is in the attic and will not have anybody to get it out from there until thursday. informed spouse that caregiver training will be provided to show ESTATE CONSERVATOR . spouse agreed. Gait Assessment Gait Gait Assistance Required: Contact Guard Assist,Minimum Assistance Distance (Feet) 25 Able to Maintain Weight Bearing Status Yes During Gait Assistive Devices Assistive Device None,Gait Belt,Front Wheeled Walker Orthotic/Prosthetic Devices or Brace: No Gait Deviations General Gait Pattern Antalgic,Decreased Stride Length,Decreased Feet Clearance Factors Limiting Gait Function Factors Limiting Gait Function Decreased Activity Tolerance, Decreased Strength,Poor Balance,Poor Safety Awareness PT-Balance Assessment Sitting Balance and Reactions Static Sitting Balance Ability Normal Dynamic Sitting Balance Ability Good Standing Balance and Reactions Static Standing Balance Ability Fair Dynamic Standing Balance Ability Fair Device Used FWW M5 PT-IP Objective Assessments Start: 06/15/23 08:40 Freq: NEEDED Status: Active Protocol: Document 06/16/23 11:00 AB (Rec: 06/16/23 14:19 AB [id number]) Orientation Orientation/Cognition Level of Alertness Alert Orientation Name,Place,Situation Language Function Ability Hard of Hearing Safety Awareness Decreased Safety Awareness Gross Range of Motion Lower Extremity ROM Assessment Within Functional Limits Strength Lower Extremity Strength Assessment Within Functional Limits Muscle Tone Muscle Tone WNL Yes M6 PT-IP Treatment Start: 06/15/23 08:40 Freq: NEEDED Status: Active Protocol: Document 06/16/23 11:00 AB (Rec: 06/16/23 14:19 AB [id number]) Physical Therapy Treatment Education Education Provided Safety M7 PT-IP Assessment and Plan Start: 06/15/23 08:40 Freq: NEEDED Status: Active Protocol: Document 06/16/23 11:00 AB (Rec: 06/16/23 14:19 AB [id number]) PT Summary Assessment and Plan Potential Rehabilitation Potential Fair Status of Condition at Evaluation Evolving Summary Impairments Pain,ROM,Strength,Balance, Coordination,Sensation,Tone, Cognition,Bed Mobility, Transfers,Gait,Activity Tolerance Assessment Summary pt is an 88 y/o M who presented to the ED with c/o SOB on exertion. pt admitted for anemia s/p transfusion. Hgb now at 8.8 and Hct: 25.6. pt requiring CGA with mobility using FWW but requiring min A without AD. will conduct caregiver training when appropriate. informed pt and spouse regarding safety and use of 4WW at this time. will continue to assess. progress. Goals Bed Mobility Goal Independent Transfer Goal Independent,Four Wheeled Walker Gait Goal Independent,Four Wheel Walker Gait Distance 200 Other Goals improve ambulation without AD or LRAD 200 ft SBA Days to Meet Goals 10 Frequency of Treatment Frequency Of Treatment Once a Day Treatment Plan Physical Therapy Treatment Plan Bed Mobility Training,Transfer Training,Gait Training, Therapeutic Exercise,Balance Retraining,Discharge Planning, Hot or Cold Pack,Neuromuscular Re-ed,Coordination Retraining Precautions Other Precautions BP Recommendations To Nursing Amount of Assist Needed 1 Person Assist Discharge Recommendations PT Discharge Recommendations Home with Assistance,Home Health Transportation Needs at Discharge Private Vehicle
--- NOTE | 2023-06-16 13:32 | CM.DPNOTE ---
[facility]CP HH Planning Per MD, pt's H&H seems stable but orthostatic and starting some Lasix and likely not yet medically stable to d/c home today. Per PT/OT, recommending home with spouse assist and HH. SW met bedside with pt and spouse again and they confirm their preference is to d/c home when stable, although pt does not feel stable for d/c yet today, and preference is [facility] since they have used them in the past. SW made [facility] referral via secure email and F2F and HH orders done but not yet sent to [facility]. Plan: SW to follow for plan of discharge home with spouse and new [facility] referral made and will need to fax F2F, HH orders, and d/c summ at discharge. ILSA Salazar
[2023-06-16] MEDS: FUROSEMIDE 40 MG TABLET PO (13:34)
--- NOTE | 2023-06-16 14:03 | DI.CT.S_ITS ---
PROCEDURE: CT ABDOMEN PELVIS W CON INDICATIONS: 88-year-old man with anemia and blood in stool. TECHNIQUE: After the administration of intravenous contrast, axial sections acquired from the lung bases to the pubic symphysis. Coronal and sagittal reformats were performed. For radiation dose reduction, the following was used: automated exposure control, adjustment of mA and/or kV according to patient size. COMPARISON: [facility], CT, CT ANGIO CHEST PE PROTOCOL, 06/01/2023, 16:03. [facility], CR, XR CHEST 2V, 06/16/2023, 8:09. [facility], CT, CT ABDOMEN PELVIS W CON, 09/20/2020, 11:47. FINDINGS: Image quality: Diagnostic. Lower Chest: Small left pleural effusion, unchanged from the CT dated 06/01/2023. Bibasilar infiltrate/consolidation or atelectasis. Heart size is mildly enlarged. Trace pericardial effusion. There is a cardiac pacemaker. Moderate coronary artery atherosclerosis. There is mild gynecomastia, left greater than right. ABDOMEN: Liver: No solid mass. There is a 1.9 cm cyst in the inferior liver. Gallbladder: Surgically absent. Biliary ducts: No biliary dilation. Pancreas: No ductal dilation. Spleen: Size is within normal limits. Adrenal Glands: Bilateral adrenal thickening. Kidneys and Ureters: No hydronephrosis. No solid mass. No complex renal cystic lesion which requires follow up. Stomach and Bowel: Normal bowel caliber, without significant wall thickening. There is a large amount of stool in colon. Diverticulosis without acute diverticulitis. Peritoneum: No abnormal intraperitoneal fluid. No free air. Ventral Wall: No significant ventral hernia. Abdominal Nodes: No retroperitoneal or mesenteric adenopathy by size criteria. Vessels: Aorta and inferior vena cava are normal in size. PELVIS: Pelvic Organs: Prostate is markedly enlarged. Bladder: No bladder wall thickening, accounting for underdistention. Pelvic Nodes: No enlarged lymph nodes. Miscellaneous: No inguinal hernias are seen. Bones: Severe spondylitic changes in lumbar spine. Osteopenia. Mild chronic compression fracture of L3. IMPRESSION: 1. A cause for GI bleed is not identified. There is is a noncontrast enhanced CT, which is not sensitive to detect GI bleeding. 2. Diverticulosis. No acute diverticulitis. 3. A large amount of stool in colon. 4. Markedly enlarged prostate. 5. Stable small left pleural effusion. 6. Bibasilar opacities may be pneumonia or atelectasis. 7. Mild chronic compression fracture of L3. 8. Osteopenia. Dictated by: Luh Cade M.D. on 06/16/2023 at 16:42 Approved by: Luh Cade M.D. on 06/16/2023 at 16:55
--- NOTE | 2023-06-16 14:03 | PM.CN ---
History of Present Illness Consult details Date Patient Seen: 06/16/23 Time Patient Seen: 14:03 Chief complaint: SOB on exertion Narrative: Jozef is an 88 year old man who presented to the ER with dyspnea and was found to be profoundly anemic. He takes eliquis and plavix. He had a recent percutaneous coronary stent procedure in [place] and had cardiac arrest while there. He has not noticed any riri blook in his stool but he has been on iron which has made stools dark. He has received 4 units of PBRCs so far with good results. Eliquis and plavix have been held. He has had 3 FIT tests over the past several years that have been negative. Last colonoscopy about 10 years ago. Meds Home Medications and Allergies Home Medications Medication Instructions Recorded Confirmed Type apixaban 5 mg tablet (Eliquis) 5 mg PO BID #60 tabs 09/29/20 06/15/23 Rx carvedilol 25 mg tablet 25 mg PO BID 02/27/22 06/14/23 History saffron extract 176.5 mg tablet 176.5 mg PO DAILY 09/17/22 06/14/23 History furosemide 40 mg tablet (Lasix) 40 mg PO DAILY #7 tabs 06/01/23 06/14/23 Rx ferrous sulfate 325 mg (65 mg 325 mg PO Q48H 06/12/23 06/15/23 History iron) tablet tamsulosin 0.4 mg capsule 0.4 mg PO BEDTIME 06/12/23 06/14/23 History atorvastatin 40 mg tablet 40 mg PO DAILY 06/14/23 06/14/23 History clopidogrel 75 mg tablet 75 mg PO DAILY 06/14/23 06/14/23 History pantoprazole 40 mg tablet,delayed 40 mg PO DAILY@0600 06/14/23 06/15/23 History release azelastine 137 mcg (0.1 %) nasal 1 spray intranasal DAILY PRN 06/15/23 06/15/23 History spray aerosol allergies losartan 25 mg tablet 25 mg PO DAILY 06/15/23 06/15/23 History polyethylene glycol 3350 17 gram 17 g PO DAILY PRN Constipation 06/15/23 06/15/23 History oral powder packet Allergies Allergy/AdvReac Type Severity Reaction Status Date / Time protamine Allergy Severe Anaphylaxis Verified 06/15/23 13:24 shellfish derived Allergy Intermediate Hives Verified 06/12/23 11:27 lisinopril Allergy Unknown Verified 06/12/23 11:27 moricizine [From Ethmozine] Allergy Unknown Verified 06/12/23 11:27 Penicillins AdvReac Mild Anxiety Verified 06/15/23 10:39 Exam Vital Signs (past 8 hours): - 06/16/23 08:00 06/16/23 12:00 Temperature 97.7 F 97.6 F Pulse Rate 61 81 Respiratory Rate 16 18 Blood Pressure 134/65 107/44 L Pulse Oximetry 97 95 Oxygen Flow Rate 0 0 Fraction of Inspired Oxygen 24 SaO2/FiO2 Ratio 408 Oxygen Delivery Method Nasal Cannula Oxygen Flow Rate 0 Narrative Exam Narrative: Abdomen soft Resp Effort & Inspection: normal respiratory effort Objective Labs 06/16/23 05:00 06/16/23 05:00 Labs: Laboratory Results - last 24 hr 06/14/23 06/15/23 06/15/23 15:39 14:05 16:45 WBC RBC Hgb 8.6 L Hct 25.4 L MCV MCH MCHC RDW Plt Count Neut % (Auto) Lymph % (Auto) [place] % (Auto) Eos % (Auto) Baso % (Auto) Neut # (Auto) Lymph # (Auto) [place] # (Auto) Eos # (Auto) Baso # (Auto) Sodium 139 Potassium 4.6 Chloride 104 Carbon Dioxide 33 H BUN 34 H Creatinine 1.26 H Estimated GFR 55 L BUN/Creatinine Ratio 27.0 H Glucose 152 H Calcium 9.1 Magnesium 1.9 Total Creatine Kinase 25 L Troponin I < 0.012 Crossmatch See Detail 06/16/23 05:00 WBC 8.3 RBC 2.75 L Hgb 8.8 L Hct 25.6 L MCV 93.2 MCH 32.0 MCHC 34.4 RDW 19.9 H Plt Count 225 Neut % (Auto) 71.8 Lymph % (Auto) 16.3 L [place] % (Auto) 8.5 Eos % (Auto) 3.2 Baso % (Auto) 0.2 Neut # (Auto) 6000 Lymph # (Auto) 1300 [place] # (Auto) 700 Eos # (Auto) 300 Baso # (Auto) 0 Sodium 140 Potassium 3.9 Chloride 104 Carbon Dioxide 32 BUN 31 H Creatinine 1.25 Estimated GFR 55 L BUN/Creatinine Ratio 24.8 H Glucose 107 Calcium 9.2 Magnesium Total Creatine Kinase Troponin I Crossmatch [facility] Medical History Facet arthropathy, lumbar Impingement syndrome of left shoulder Herniated nucleus pulposus, lumbar Compression fracture of L3 lumbar vertebra Lumbar stress fracture Lumbar radiculopathy Morbid obesity Enlarged prostate with urinary retention Hypertension Atrial fibrillation Pacemaker Diabetes Bladder stones Family History Mother Cancer Social History household members: spouse Tobacco & Substance Use Smoking Status: Former smoker alcohol intake: former Assessment & Plan Assessment and plan (1) Anemia requiring transfusions: Status: Acute Plan Given his tenuous cardiac status recommend observation. Will check a CT abdomen pelvis to make sure there are no large masses. If his hemoglobin remains stable would just observe.
--- NOTE | 2023-06-16 18:58 | PM.PN.1 ---
Subjective Subjective Date Patient Seen: 06/16/23 Time Patient Seen: 18:58 Interval history: Patient had unremarkable night last night. He had 2 bowel movements today. The 1st 1 was guaiaced and this was positive. He had abdominal ultrasound today which showed no evidence of abnormality however limited due to bowel gas. He had a chest x-ray that showed evidence of pulmonary edema. Given the guaiac-positive stool the profound anemia and no clear source of blood loss general surgery was consulted and ordered a CT scan. Patient denies any shortness a breath. He is able to tolerate a diet without difficulty. He is able to get up with PT in his fatigued and slightly deconditioned but is not having exertional dyspnea 12 point review of systems is otherwise negative Exam Vital Signs (past 8 hours): - 06/16/23 12:00 06/16/23 16:00 Temperature 97.6 F 98.5 F Pulse Rate 81 82 Respiratory Rate 18 16 Blood Pressure 107/44 L 105/43 L Pulse Oximetry 95 96 Oxygen Flow Rate 0 0 Fraction of Inspired Oxygen 24 SaO2/FiO2 Ratio 408 Oxygen Delivery Method Nasal Cannula Oxygen Flow Rate 0 Narrative Exam Narrative: Patient is alert and oriented no apparent distress his O2 sats are mid 90s on room air. His blood pressures range from 98-134 over 43-60. Heart rate in the 80s HEENT unremarkable Neck: Supple Chest: Decreased breath sounds bibasilar left greater than right but no wheezes or rhonchi. Cor: Irregularly irregular rhythm at a well-controlled rate Abdomen: Positive bowel sounds x4, nontender, nondistended, obese Extremities: Show trace edema. Objective Labs 06/16/23 05:00 06/16/23 05:00 Labs: Laboratory Results - last 24 hr 06/16/23 05:00 WBC 8.3 RBC 2.75 L Hgb 8.8 L Hct 25.6 L MCV 93.2 MCH 32.0 MCHC 34.4 RDW 19.9 H Plt Count 225 Neut % (Auto) 71.8 Lymph % (Auto) 16.3 L [place] % (Auto) 8.5 Eos % (Auto) 3.2 Baso % (Auto) 0.2 Neut # (Auto) 6000 Lymph # (Auto) 1300 [place] # (Auto) 700 Eos # (Auto) 300 Baso # (Auto) 0 Sodium 140 Potassium 3.9 Chloride 104 Carbon Dioxide 32 BUN 31 H Creatinine 1.25 Estimated GFR 55 L BUN/Creatinine Ratio 24.8 H Glucose 107 Calcium 9.2 PFSH Medical History Facet arthropathy, lumbar Impingement syndrome of left shoulder Herniated nucleus pulposus, lumbar Compression fracture of L3 lumbar vertebra Lumbar stress fracture Lumbar radiculopathy Morbid obesity Enlarged prostate with urinary retention Hypertension Atrial fibrillation Pacemaker Diabetes Bladder stones Family History Mother Cancer Social History household members: spouse Smoking Status: Former smoker alcohol intake: former Assessment & Plan Assessment & Plan narrative: Assessment & Plan narrative: Very pleasant 88-year-old male who is well known to me admitted for profound anemia with shortness of breath with exertion secondary to this. Assessment 1. Microcytic anemia, severe. Patient has had a total of 4 units of packed red blood cells with appropriate response to transfusion. He did have a stool today that is guaiac positive. Surgery was consulted and abdominal ultrasound done initially and then CT scan of his abdomen and pelvis which did not show any acute abnormalities other than moderate stool. Given his complicated medical history and advanced age and comorbidities I think it is very risky to proceed with endoscopy. He understands this. He understands that this is the gold standard but the CT scan is encouraging as well as his stable H&H. At this point we will recheck H&H in the morning. Will continue off the Plavix and the Eliquis. Pending results tomorrow will transfuse further. Appreciate surgery input. Will continue with Protonix. Assessment 2. Coronary artery disease with recent minimally invasive CABG x2 and subsequent stent placement done end of March at [facility] in [place]. Plan: As above I reviewed with patient's surgeon Dr. Vega and I will hold Plavix and Eliquis and hope to restart Plavix once I can ensure that he is not having any blood loss in his H&H has been stable. He understands the risk of this. I discussed this with his surgeon as well as needle punch operator on-call for Dr. Fu and they agree. Assessment 3. Diet-controlled type 2 diabetes Plan: Patient will be placed on a diabetic diet and will continue to monitor Assessment 4. Chronic kidney disease Plan: Will continue to watch closely especially as we give higher doses of diuretic in between blood transfusions Assessment 5. BPH with lower urinary tract symptoms Plan: Will continue with tamsulosin Assessment 6. Patient was having difficulty sleeping, anorexia and mirtazapine was started with good success Plan: Will continue same Assessment 7. Atrial fibrillation with well-controlled rate. Plan: Will continue with Coreg and hold the Eliquis. Patient understands risks. But he understands that continued use would cause further bleeding and at this time hold more of a risk to his health. Assessment 8. Guaiac-positive stools. Please see above CT of abdomen and pelvis and abdominal ultrasound negative for any mass. Currently patient is probably not in the best medical condition for endoscopy. He is responded to blood transfusions. We will continue same and reassess tomorrow. Continue with the same Protonix. It is my thought that probably he had a stress ulcer or gastritis with further oozing related to the Plavix and Eliquis and therefore did not have a clear recognizable bleed Assessment 9. Heart failure with preserved ejection fraction. Slight left pleural effusion. Reviewed echo. He received oral Lasix. Will likely give IV tomorrow especially if we give another blood transfusion. Will continue with the same Coreg and losartan. Assessment 10. GERD no current symptoms Plan: Continue with IV Protonix. Will likely discharge home on a higher dose briefly Assessment 11. Constipation improved Plan: Will continue to monitor. 60 minutes was spent with patient discussing with physicians and nursing and reviewing chart and diagnostic studies formulating a plan and documentation Code status is full code Quality VTE Deep Vein Thrombosis/Pulmonary Embolism Present on Admission: No
[2023-06-16] MEDS: MIRTAZAPINE 15 MG TABLET 7.5 MG PO (22:06)
[2023-06-16] MEDS: TAMSULOSIN 0.4 MG CAPSULE PO (22:07)
[2023-06-17] VITALS: BP 131/48; PULSE 80; RESP 17; TEMP 36.3; O2SAT 94
[2023-06-17 04:00] VITALS: BP 125/56; PULSE 66; RESP 16; TEMP 37.1; O2SAT 97
[2023-06-17 06:02] LABS: Alanine Aminotransferase 13 IU/L (<50); Albumin 3.3 g/dL (3.5-5.0); Albumin Globulin Ratio 1.3 (1.0-2.8); Alkaline Phosphatase 68 U/L (38-126); Aspartate Aminotransferase 20 IU/L (17-59); BUN Creatinine Ratio 22.2 (6-22); Bilirubin Total 0.6 mg/dL (0.2-1.3); Blood Urea Nitrogen 30 mg/dL (9-20); Calcium 9.3 mg/dL (8.4-10.2); Carbon Dioxide 33 mmol/L (22-32); Chloride 104 mmol/L (98-107); Estimated Glomerular Filt Rate 50 mL/min (>60); Globulin 2.6 g/dL (1.7-4.1); Glucose 109 mg/dL (80-110); HEMOLYSIS < 15 (0-50); Potassium 3.8 mmol/L (3.4-5.1); Sodium 137 mmol/L (137-145); Total Protein 5.9 g/dL (6.3-8.2)
[2023-06-17 06:14] LABS: Add Manual Diff / Slide Review NO; Basophils Absolute Auto 0 /uL (0-100); Basophils Percent Auto 0.3 % (0-2); Eosinophils Absolute Auto 400 /uL (0-450); Eosinophils Percent Auto 4.9 % (2-4); Hemoglobin 8.6 g/dL (13.5-17.5); Lymphocytes Absolute Auto 1200 /uL (1100-4500); Lymphocytes Percent Auto 15.5 % (25-40); Mean Corpuscular HGB Conc 34.4 % (30-36); Mean Corpuscular Hemoglobin 32.3 PG (26-34); Mean Corpuscular Volume 93.8 fL (80-100); Monocytes Absolute Auto 700 /uL (0-900); Neutrophils Absolute Auto 5600 /uL (1500-7000); Neutrophils Percent Auto 70.3 % (50-75); Platelet Count 228 X10^3/uL (150-400); Red Blood Cell Count 2.66 X10^6/uL (4.5-5.9)
[2023-06-17 09:30] VITALS: BP 123/50; PULSE 76; RESP 16; TEMP 36.7; O2SAT 94
[2023-06-17 09:48] VITALS: BP 123/50; PULSE 76
[2023-06-17] MEDS: DOCUSATE 100 MG CAPSULE PO (09:48)
[2023-06-17] MEDS: carvediloL 12.5 MG TABLET 25 MG PO (09:48)
[2023-06-17] MEDS: ATORVASTATIN 20 MG TABLET 40 MG PO (09:48)
--- NOTE | 2023-06-17 10:03 | PM.DS.1 ---
History of Present Illness History of Present Illness Date Patient Seen: 06/17/23 Time Patient Seen: 10:03 Chief complaint: SOB on exertion Narrative: This is a very pleasant 88-year-old male who is well known to me. Patient is admitted for severe anemia with exertional dyspnea thought to be from the same. Patient has a very complicated past medical history. He recently underwent a minimally invasive CABG x2 and stent replacement at [facility] in [facility]. He apparently had anaphylaxis and cardiac arrest with protamine, the reversal agent after they were giving him the stent. He ended up requiring 3 units of packed red blood cells. He was discharged home and since that time he has had symptoms of difficulty breathing. He went to the ER on May 31 and was given IV diuresis with excellent response. He then was seen by me on the and was in stable and improved condition and seen by Hematology on June 02 for a history of iron-deficiency anemia which the developer evangelist felt was more likely anemia of chronic disease. He was remaining in the upper 8 4 his hemoglobin since he was discharged from [facility]. His iron was increased orally. He then had sudden onset of markedly worsened dyspnea on exertion yesterday which was the day of admission and presented to the emergency room and was found to have severe normocytic anemia. A rectal exam was done at that time but for some reason guaiac not performed. Soft brown stool was noted. Patient said he had 1 episode of black tarry stools but he said this was just 1 episode with no recurrence and he thought it was iron. He has been eating better he has not had any abdominal complaints but prior when I saw him in the clinic he was having symptoms of just not being hungry. He was placed on mirtazapine for this reason and due to difficulty sleeping and he is feeling much better. Twelve point review of systems is negative other than above Patient denies any chest pain Patient denies any palpitations or presyncope or syncope or lightheadedness or dizziness Patient denies any bright red blood per rectum, hematochezia, melena, hematemesis Patient has had blood SPECT in his sputum He has not been having significant cough or sputum but mild No fevers No rashes No abdominal pain Swelling has been improved from what it was 2 weeks ago but still is having swelling Did have a hematoma from having the CABG but this is resolved Past medical history: 1. Coronary artery disease status post minimally invasive CABG with stent placement in March of 2023 at [facility] in [facility] 2. Chronic anemia 3. Type 2 diabetes, diet controlled 4. Hyperlipidemia 5. Hypertension 6. Family history of colon cancer in his mom 7. GERD 8. BPH 9. Paroxysmal atrial fibrillation 10. Lumbar radiculopathy 11. 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 Obesity Allergies: Multiple reviewed. Protamine added. Past surgical history: March 2023 CABG 04/30/2011 pacemaker Health related behavior: Twenty pack year history of tobacco abuse but quit in 1974, does not use alcohol, does not use illicit drugs Social history: Patient is retired he lives in [place] with his in their home. They have excellent support through their children and friends Family history: Mother of colon cancer Discharge Providers Provider Date of admission: 06/14/23 16:18 Discharge Date: 06/17/23 Primary care physician: Freya Gutierrez MD Consults: 06/14/23 17:56 Consult to Occupational Therapy Evaluate & Treat Comment: Physician Instructions: Evaluate and treat Consult to Physical Therapy Evaluate & Treat Comment: Physician Instructions: Evaluate and Treat 06/14/23 18:52 Consult to Dietitian, Adult Routine Comment: Reason For Exam: weight loss in admission screen 06/15/23 13:57 Consult to Occupational Therapy Evaluate & Treat Comment: Physician Instructions: Evaluate and treat Consult to Physical Therapy Evaluate & Treat Comment: Physician Instructions: Evaluate and Treat 06/16/23 13:30 Consult to Home Health Routine Comment: Anemia, Vtach, weakness, fatigue Reason For Exam: Set up HH RN/PT/OT/TRANSFORMER ASSEMBLY SUPERVISOR for discharge to home Discharge provider: Freya Gutierrez MD Summary Status at Discharge Cognitive/behavioral status at discharge: oriented Functional status at discharge: independent ambulation Overall status at discharge: patient is progressing back to baseline Exam Vital Signs (past 8 hours): - 06/17/23 04:00 06/17/23 09:30 06/17/23 09:48 Temperature 98.8 F 98.1 F Pulse Rate 66 76 76 Respiratory Rate 16 16 Blood Pressure 125/56 L 123/50 L 123/50 L Pulse Oximetry 97 94 Oxygen Flow Rate 0 0 Fraction of Inspired Oxygen 24 SaO2/FiO2 Ratio 408 Oxygen Delivery Method Nasal Cannula Oxygen Flow Rate 0 Narrative Exam Narrative: Afebrile vital signs are stable Color is improved Neck: Supple Chest: Bibasilar crackles left greater than right but no wheezes rhonchi or increased work of breathing Cor: Regular rate and rhythm Abdomen: Benign Extremities trace edema Objective Labs 06/17/23 04:50 06/17/23 04:50 Labs: Laboratory Results - last 24 hr 06/17/23 04:50 WBC 8.0 RBC 2.66 L Hgb 8.6 L Hct 25.0 L MCV 93.8 MCH 32.3 MCHC 34.4 RDW 20.0 H Plt Count 228 Neut % (Auto) 70.3 Lymph % (Auto) 15.5 L [place] % (Auto) 9.0 Eos % (Auto) 4.9 H Baso % (Auto) 0.3 Neut # (Auto) 5600 Lymph # (Auto) 1200 [place] # (Auto) 700 Eos # (Auto) 400 Baso # (Auto) 0 Sodium 137 Potassium 3.8 Chloride 104 Carbon Dioxide 33 H BUN 30 H Creatinine 1.35 H Estimated GFR 50 L BUN/Creatinine Ratio 22.2 H Glucose 109 Calcium 9.3 Total Bilirubin 0.6 AST 20 ALT 13 Alkaline Phosphatase 68 Total Protein 5.9 L Albumin 3.3 L Globulin 2.6 Albumin/Globulin Ratio 1.3 PFSH Medical History Facet arthropathy, lumbar Impingement syndrome of left shoulder Herniated nucleus pulposus, lumbar Compression fracture of L3 lumbar vertebra Lumbar stress fracture Lumbar radiculopathy Morbid obesity Enlarged prostate with urinary retention Hypertension Atrial fibrillation Pacemaker Diabetes Bladder stones Family History Mother Cancer Social History household members: spouse Smoking Status: Former smoker alcohol intake: former Discharge Assessment & Plan Assessment and Plan Plan of Treatment: Lengthy discussion with patient and his as well Dr. Mancia and have discussed with Cardiology as well as cardiac surgeon in [facility]. Will DC home today. Will continue all outpatient medications except hold losartan until his blood pressure is stable above 120. Will hold Eliquis until further notice Will hold Plavix until Thursday and then he will restart Will increase Protonix to 40 mg twice daily to treat suspected stress ulcer or gastritis that cause slow bleeding. Will follow-up with me on Thursday with blood work prior at our office on Thursday. Patient will resume outpatient oral furosemide and oral iron. Discharge Plan Discharge Plan Patient Disposition: Home Discharge orders & Medications Prescriptions: Continued furosemide [Lasix] 40 mg tablet 40 mg PO DAILY Qty: 7 0RF pantoprazole 40 mg tablet,delayed release (DR/EC) 40 mg PO DAILY@0600 atorvastatin 40 mg tablet 40 mg PO DAILY polyethylene glycol 3350 17 gram Powder In Packet 17 g PO DAILY PRN (Reason: Constipation) azelastine 137 mcg (0.1 %) aerosol,spray 1 spray intranasal DAILY PRN (Reason: allergies) carvedilol 25 mg tablet 25 mg PO BID saffron extract 176.5 mg tablet 176.5 mg PO DAILY ferrous sulfate 325 mg (65 mg iron) tablet 325 mg PO Q48H Rx Instructions: every other day tamsulosin 0.4 mg capsule 0.4 mg PO BEDTIME Discontinued Eliquis 5 mg Tablet 5 mg PO BID Qty: 60 0RF clopidogrel 75 mg tablet 75 mg PO DAILY losartan 25 mg tablet 25 mg PO DAILY Follow up/Referrals: Freya Gutierrez MD [Primary Care Provider] - Discharge Health Status Multidrug resistant organism: No MDRO Diet/Activity/Treatments Diet: Carb-consistent/Diabetic and Low-sodium Visit Report/Discharge Packet Stand Alone Forms: Patient Portal/API, Stroke Signs & Symptoms Discharge Data Primary Care Provider: Freya Gutierrez Quality VTE Deep Vein Thrombosis/Pulmonary Embolism Present on Admission: No
[2023-06-17] MEDS: PANTOPRAZOLE DR 40 MG TABLET PO (10:49)
== END 2023-06-17 10:55 | disposition home health service (06) | DRG 378 ==
LOC: ED 14:52 → AC 16:19
PROVIDERS: Admitting Provider Family Medicine; Emergency Provider Emergency Medicine; PCP Family Medicine; Referring Provider Emergency Medicine; Visit Provider Family Medicine
DX: K92.2 Gastrointestinal hemorrhage, unspecified (principal); I13.0 Hypertensive heart and chronic kidney disease with heart failure and stage 1 through stage 4 chronic kidney disease, or unspecified chronic kidney disease; I50.30 Unspecified diastolic (congestive) heart failure; D64.9 Anemia, unspecified; N40.1 Benign prostatic hyperplasia with lower urinary tract symptoms; G47.00 Insomnia, unspecified; E11.22 Type 2 diabetes mellitus with diabetic chronic kidney disease; N18.9 Chronic kidney disease, unspecified; I48.91 Unspecified atrial fibrillation; K21.9 Gastro-esophageal reflux disease without esophagitis; Z79.02 Long term (current) use of antithrombotics/antiplatelets; Z87.891 Personal history of nicotine dependence; Z95.1 Presence of aortocoronary bypass graft; Z95.5 Presence of coronary angioplasty implant and graft; Z79.01 Long term (current) use of anticoagulants
CPT/HCPCS: 36415; 36430; 71045; 71046; 74177; 76700; 80048; 80053; 82550; 83735; 83880; 84484; 85007; 85014; 85018; 85025; 85610; 86850; 86900; 86901; 93005; 93306; 96374; 97162; 97165; 97530; 97535; 99214; 99284; 99285; P9016; C9113; J1940

== ENCOUNTER → 2023-07-07 15:32 | Outpatient (CLI) | payer MEDICARE, BC, SELFPAY ==
[2023-06-14 18:40] VITALS: BMI 32.7
--- NOTE | 2023-07-07 15:34 | DI.RAD.S_ITS ---
PROCEDURE: XR CHEST 2V INDICATIONS: SOB TECHNIQUE: 2 views of the chest were acquired. COMPARISON: [facility], CR, XR CHEST 2V, 06/16/2023, 8:09. FINDINGS: Surgical changes and devices: Cardiac pacer is unchanged. Lungs and pleura: There are decreased bilateral airspace opacities when compared with the study dated June 16, 2023. No focal consolidation or pleural effusions. Mediastinum: Mediastinal contours are normal. Heart size is enlarged, as before. Bones and chest wall: No suspicious bony abnormalities. Soft tissues appear unremarkable. IMPRESSION: Cardiomegaly. No acute pulmonary findings. Dictated by: Monica Macdonald M.D. on 07/07/2023 at 16:41 Approved by: Monica Macdonald M.D. on 07/07/2023 at 16:43
== END ==
PROVIDERS: PCP Family Medicine; Referring Provider Family Medicine; Visit Provider Family Medicine
DX: R05.2 Subacute cough (principal); I51.7 Cardiomegaly; Z95.0 Presence of cardiac pacemaker
CPT/HCPCS: 71046

== ENCOUNTER → 2023-08-03 14:01 | Outpatient (CLI) | payer MEDICARE, BC, SELFPAY ==
[2023-06-14 18:40] VITALS: BMI 32.7
[2023-08-03 15:08] LABS: BUN Creatinine Ratio 21.4 (6-22); Blood Urea Nitrogen 27 mg/dL (9-20); Calcium 9.1 mg/dL (8.4-10.2); Carbon Dioxide 30 mmol/L (22-32); Chloride 103 mmol/L (98-107); Estimated Glomerular Filt Rate 55 mL/min (>60); Glucose 127 mg/dL (80-110); HEMOLYSIS 16 (0-50); Potassium 3.9 mmol/L (3.4-5.1); Sodium 139 mmol/L (137-145)
== END ==
PROVIDERS: PCP Family Medicine; Referring Provider Family Medicine; Visit Provider Family Medicine
DX: D64.9 Anemia, unspecified (principal)
CPT/HCPCS: 80048; 86850; 86900; 86901